=== PATIENT | male | born 1960 | race American Indian/Alaskan Native ===

== ENCOUNTER 2016-12-07 19:13 | Emergency (ER) | payer SELFPAY ==
--- NOTE | 2016-12-07 23:10 | Emergency Department Report ---
- General Chief complaint: Extremity Problem,Nontraumatic Stated complaint: R LEG PAIN/CP Time Seen by Provider: 12/07/16 22:36 Source: patient Mode of arrival: Ambulatory Limitations: No Limitations - History of Present Illness Initial comments: Patient is a 56-year-old male presenting to the ED with right lower leg skin complaints and a right-sided chest wall lump. Patient reports he's had this itching excoriations and lesions on his right leg for the past 3 months. he reports the itching is increased. he reports no one else in his home has a similar complaint, and he has no other areas of his body with lesions or itching. Patient also reports he feels a right sided lump to the right chest wall rate underneath his nipple which he eports is mobile and is painful at times. Patient denies any area of redness swelling or itching around the chest mass. Otherwise patient denies fevers, chills, headache, nausea, vomiting, diarrhea, chest pain, shortness of breath, abdominal pain, trauma, recent travel , or sick contacts. MD complaint: rash, insect bite/sting -: month(s) (3) Tetanus Up to Date: no Quality: burning (burning skin lesions) Improves with: none Worsens with: none Context: none Associated symptoms: denies other symptoms - Related Data Previous Rx's Medication Instructions Recorded Last Taken Type Permethrin 5% [Acticin 5% CREAM] 1 applicatio TP ONCE #1 tube 12/07/16 Unknown Rx Sulfamethoxazole/Trimethoprim 1 each PO BID #20 tablet 12/07/16 Unknown Rx [Bactrim DS TAB] Allergies Allergy/AdvReac Type Severity Reaction Status Date / Time Penicillins Allergy Unknown Unknown Verified 07/07/13 08:28 Abscess Boil HPI - HPI Chief Complaint: Extremity Problem,Nontraumatic Stated Complaint: R LEG PAIN/CP Time Seen by Provider: 12/07/16 22:36 Home Medications: Previous Rx's Medication Instructions Recorded Last Taken Type Permethrin 5% [Acticin 5% CREAM] 1 applicatio TP ONCE #1 tube 12/07/16 Unknown Rx Sulfamethoxazole/Trimethoprim 1 each PO BID #20 tablet 12/07/16 Unknown Rx [Bactrim DS TAB] Allergies/Adverse Reactions: Allergies Allergy/AdvReac Type Severity Reaction Status Date / Time Penicillins Allergy Unknown Unknown Verified 07/07/13 08:28 ED Review of Systems ROS: Stated complaint: R LEG PAIN/CP Other details as noted in HPI Comment: All other systems reviewed and negative ED Past Medical Hx - Past Medical History Previous Medical History?: Yes Hx Hypertension: Yes Hx Heart Attack/AMI: No Hx Congestive Heart Failure: No Hx Diabetes: No Hx GERD: No Hx Headaches / Migraines: No Hx Kidney Stones: No Hx Asthma: No Hx COPD: No Hx Tuberculosis: No Hx HIV: No - Surgical History Past Surgical History?: Yes Hx Coronary Stent: No Hx Pacemaker: No Hx Internal Defibrillator: No Additional Surgical History: Ear surgery. Orchiectomy secondary to "it just swolle up on me" - Social History Smoking Status: Current Every Day Smoker Substance Use Type: Alcohol - Medications Home Medications: Home Medications Medication Instructions Recorded Confirmed Last Taken Type Permethrin 5% [Acticin 5% CREAM] 1 applicatio TP ONCE #1 tube 12/07/16 Unknown Rx Sulfamethoxazole/Trimethoprim 1 each PO BID #20 tablet 12/07/16 Unknown Rx [Bactrim DS TAB] ED Physical Exam - General Limitations: No Limitations General appearance: alert, in no apparent distress - Head Head exam: Present: atraumatic, normocephalic - Eye Eye exam: Present: normal appearance - ENT ENT exam: Present: mucous membranes moist - Neck Neck exam: Present: normal inspection - Respiratory Respiratory exam: Present: normal lung sounds bilaterally. Absent: respiratory distress - Cardiovascular Cardiovascular Exam: Present: regular rate, normal rhythm. Absent: systolic murmur, diastolic murmur, rubs, gallop - GI/Abdominal GI/Abdominal exam: Present: soft, normal bowel sounds - Neurological Exam Neurological exam: Present: alert, oriented X3 - Skin Skin exam: Present: warm, dry, other (Mobile marble sized mass underneath the R nipple, no surrounding cellulitis, erythema, or swelling, no nipple discharge.) - Expanded Skin Exam Expanded Type of lesion: Present: rash, bite/sting Distribution of rash: RLE Description of rash: Present: tenderness, erythematous, other (small round ulcerated lesions, resembles scabies) ED Course Vital Signs 12/07/16 12/07/16 12/07/16 19:21 22:31 22:56 Temperature 98.6 F 98.2 F Pulse Rate 67 70 Respiratory 18 18 20 Rate Blood Pressure 144/99 Blood Pressure 125/75 [Left] O2 Sat by Pulse 98 98 99 Oximetry ED Medical Decision Making - Medical Decision Making Reviewed patient's physical exam patient has a rash on his lower lower right extremity resembling cellulitis and possibly scabies we'll treat for scabies and cellulitis Critical care attestation.: If time is entered above; I have spent that time in minutes in the direct care of this critically ill patient, excluding procedure time. ED Disposition Clinical Impression: Cellulitis, Crusted scabies, Mass of chest wall Disposition: DISCHARGED TO HOME OR SELFCARE Is pt being admited?: No Does the pt Need Aspirin: No Condition: Stable Instructions: Cellulitis (ED), Scabies (ED), Breast Mass (ED) Prescriptions: Permethrin 5% [Acticin 5% CREAM] 1 applicatio TP ONCE #1 tube Sulfamethoxazole/Trimethoprim [Bactrim DS TAB] 1 each PO BID #20 tablet Referrals: PRIMARY CARE, [Primary Care Provider] - 3-5 Days
[2016-12-08 00:40] VITALS: BP 122/70
--- NOTE | 2016-12-08 09:32 | XRay Report ---
CHEST 2 VIEWS INDICATION: Chest wall lump. Patient states a hard, sore lump under the right nipple for one day. Associated chest pain for past few hours. COMPARISON: 07/10/2016 FINDINGS: PA and lateral chest radiographs, 4 images, demonstrate now clear lungs without pleural effusions or CHF. Normal, well delineated cardiomediastinal silhouette. Better inspiration. Stable bones, including mild expansile deformity to the right seventh rib posterolaterally, stable dating back to October 2011 imaging at this institution, possibly an enchondroma or focal fibrous dysplasia on CT. Subtle old deformity along the left fifth rib laterally may also again be noted. CONCLUSION: No acute chest process with interval clearing of pulmonary infiltrates and stable appearance of the ribs, as described. Thank you for the opportunity to participate in this patient's care.
== END 2016-12-08 00:42 | disposition home or self-care (01) ==
LOC: ED 19:13
DX: L03.313 Cellulitis of chest wall (principal); B86 Scabies; I10 Essential (primary) hypertension; F17.200 Nicotine dependence, unspecified, uncomplicated; Z88.0 Allergy status to penicillin
CPT/HCPCS: 71020

== ENCOUNTER 2017-12-20 09:04 | Emergency (ER) | payer SELFPAY ==
[2017-12-20] MEDS ORDERED: LASIX PO ONE (10:59)
[2017-12-20] MEDS ORDERED: BENADRYL PO ONE (10:59)
--- NOTE | 2017-12-20 11:09 | Emergency Department Report ---
HPI - General Chief Complaint: Extremity Injury, Lower Time Seen by Provider: 12/20/17 10:57 - HPI HPI: The patient's 57-year-old male presents for evaluation of rash and pain to the right lower extremity. The patient reports rash and mild stinging in quality pain to the right irby, moderate to severe, exacerbated with scratching, present and constant for >3 months. He denies fever, trauma or puncture wound to the right lower leg, chills, night sweats, paresthesias, motor deficit, or color change in the leg or foot distal to the rt irby. ED Past Medical Hx - Past Medical History Hx Hypertension: Yes Hx Heart Attack/AMI: No Hx Congestive Heart Failure: No Hx Diabetes: No Hx GERD: No Hx Headaches / Migraines: No Hx Kidney Stones: No Hx Asthma: No Hx COPD: No Hx Tuberculosis: No Hx HIV: No - Surgical History Hx Coronary Stent: No Hx Pacemaker: No Hx Internal Defibrillator: No Additional Surgical History: Ear surgery. Orchiectomy secondary to "it just swolle up on me" - Social History Smoking Status: Current Every Day Smoker - Medications Home Medications: Home Medications Medication Instructions Recorded Confirmed Last Taken Type Permethrin 5% [Acticin 5% CREAM] 1 applicatio TP ONCE #1 tube 12/07/16 Unknown Rx Aspirin [Aspirin BABY CHEW TAB] 81 mg PO QDAY #30 tab.chew 12/20/17 Unknown Rx Desonide [Desonide 0.05%] 1 applicatio TP BID #1 tube 12/20/17 Unknown Rx Furosemide [Lasix] 20 mg PO QDAY #30 tablet 12/20/17 Unknown Rx Sulfamethoxazole/Trimethoprim 1 each PO BID #20 tablet 12/20/17 Unknown Rx [Bactrim DS TAB] ED Review of Systems ROS: Stated complaint: RIGHT LEG PAIN Other details as noted in HPI Constitutional: denies: fever ENT: denies: throat or neck pain Respiratory: denies: cough, shortness of breath Cardiovascular: denies: chest pain Endocrine: denies unexplained weight loss or gain Gastrointestinal: denies: abdominal pain, nausea Genitourinary: denies: dysuria Musculoskeletal: reports right irby pain denies: leg swelling Skin: denies: reports rt leg rash Neurological: denies: headache Hematological/Lymphatic: denies: easy bleeding or easy bruising Psych: denies sadness or hopelessness Physical Exam - Physical Exam Vital Signs: Vital Signs 12/20/17 09:40 Temperature 98.5 F Pulse Rate 67 Respiratory 16 Rate Blood Pressure 165/81 O2 Sat by Pulse 100 Oximetry Physical Exam: General: well-nourished, well-developed, no acute distress Head: Normocephalic, atraumatic Eyes: normal sclera ENT: Mucous membranes are pink and moist Neck: trachea midline, neck supple, No neck stiffness, no cervical adenopathy Respiratory: Breath sounds equal bilaterally, no wheezing, rales, or rhonchi Cardio: S1 and S2 present, no murmurs, rubs, gallops, capillary refill is brisk Abdomen: Normoactive bowel sounds, soft abdomen, no rigidity, no guarding or rebound tenderness Musc: Circumferential dry, scaly, hyperpigmentated skin with small areas of mild redess present to the right mid irby, sensation, motor function, and pulses in the right foot and leg distal to the irby intact, nasal polyposis of the palpable, no signs of compartment syndrome, no calf muscle pain with compression Skin: No rash Neuro: no facial drooping, normal speech Psych: Normal affect ED Course Vital Signs 12/20/17 09:40 Temperature 98.5 F Pulse Rate 67 Respiratory 16 Rate Blood Pressure 165/81 O2 Sat by Pulse 100 Oximetry ED Medical Decision Making - Medical Decision Making The patient's and examined by myself. There are no signs on exam concerning for DVT at this time protect as the patient has no calf muscle or thigh pain, and as his symptoms have been constant for many months, consistent with chronic venous insufficiency. The patient is given pain medicine. The patient was reevaluated and reported that their symptoms were markedly improved. The patient is stable for discharge with outpatient follow-up. The patient is given follow-up and return instructions. The patient expressed understanding and agreed with the plan. The patient is discharged in stable condition. Critical care attestation.: If time is entered above; I have spent that time in minutes in the direct care of this critically ill patient, excluding procedure time. ED Disposition Clinical Impression: Venous insufficiency of right lower extremity, Pain of right lower extremity Disposition: DC-01 TO HOME OR SELFCARE Is pt being admited?: No Does the pt Need Aspirin: No Condition: Stable Instructions: Stasis Dermatitis (ED), Peripheral Vascular Disorders (ED), Eczema (ED) Prescriptions: Aspirin [Aspirin BABY CHEW TAB] 81 mg PO QDAY #30 tab.chew Desonide [Desonide 0.05%] 1 applicatio TP BID #1 tube Furosemide [Lasix] 20 mg PO QDAY #30 tablet Sulfamethoxazole/Trimethoprim [Bactrim DS TAB] 1 each PO BID #20 tablet Referrals: PABLO KNOWLES MD [Primary Care Provider] - 3-5 Days Time of Disposition: 11:00
[2017-12-20 11:16] VITALS: BP 145/72
== END 2017-12-20 11:15 | disposition home or self-care (01) ==
LOC: ED 09:04
DX: M79.661 Pain in right lower leg (principal); I87.2 Venous insufficiency (chronic) (peripheral); I10 Essential (primary) hypertension; F17.200 Nicotine dependence, unspecified, uncomplicated; Z88.0 Allergy status to penicillin
CPT/HCPCS: 99282

== ENCOUNTER 2019-11-15 07:23 | Emergency (ER) | payer SELFPAY ==
[2019-11-15] MEDS ORDERED: ASPIRIN 325 MG TAB PO ONE (07:41)
--- NOTE | 2019-11-15 08:46 | XRay Report ---
CHEST 2 VIEWS INDICATION: Chest Pain. Occasional smoker. COMPARISON: 11/09/2014 FINDINGS: Support devices: None. Heart: Within normal limits. Pulmonary vasculature: Abnormal. Lungs/pleura: No acute air space or interstitial disease. No pneumothorax. Additional findings: An old healed fracture of the right seventh rib and an old healed fracture of th e left fourth rib are unchanged compared to the previous exam. IMPRESSION: 1. No acute findings. 2. Old rib fractures. Signer Name: David Haji MD Signed: 11/15/2019 8:42 AM Workstation Name: [id number]
--- NOTE | 2019-11-15 09:31 | Emergency Department Report ---
ED Chest Pain HPI - General Chief Complaint: Chest Pain Stated Complaint: CHEST PAIN Time Seen by Provider: 11/15/19 09:13 Source: patient Mode of arrival: Ambulatory Limitations: No Limitations - History of Present Illness Initial Comments: 59-year-old male with no past medical history, presents to ED with chest pain that occurred earlier this morning. Patient reports prior to experiencing this chest pain, he used cocaine for the first time with a friend. Patient states he experienced shooting pains that went across his entire chest. Patient states this occurred 3 times back to back. Patient denies any chest pain currently. He denies having any shortness of breath, nausea vomiting, diaphoresis. He also denies any fever, cough. MD Complaint: chest pain -: This morning Onset: during rest Pain Location: other (anterior chest) Pain Radiation: other (back and forth across chest) Severity scale (0 -10): 5 Quality: other ("shooting") Consistency: now resolved Improves With: nothing Worsens With: nothing re: denies: nausea, vomting, diaphoresis, dyspnea Other Symptoms: denies: cough, fever, leg swelling - Related Data Previous Rx's Medication Instructions Recorded Last Taken Type Permethrin 5% [Acticin 5% CREAM] 1 applicatio TP ONCE #1 tube 12/07/16 Unknown Rx Aspirin [Aspirin BABY CHEW TAB] 81 mg PO QDAY #30 tab.chew 12/20/17 Unknown Rx Desonide [Desonide 0.05%] 1 applicatio TP BID #1 tube 12/20/17 Unknown Rx Furosemide [Lasix] 20 mg PO QDAY #30 tablet 12/20/17 Unknown Rx Sulfamethoxazole/Trimethoprim 1 each PO BID #20 tablet 12/20/17 Unknown Rx [Bactrim DS TAB] Allergies Allergy/AdvReac Type Severity Reaction Status Date / Time Penicillins Allergy Unknown Unknown Verified 07/07/13 08:28 Heart Score - HEART Score History: Slightly suspicious EKG: Normal Age: 45-65 Risk factors: 1-2 risk factors Troponin: < normal limit HEART Score: 2 ED Review of Systems ROS: Stated complaint: CHEST PAIN Other details as noted in HPI Comment: All other systems reviewed and negative Constitutional: denies: fever Respiratory: denies: cough, shortness of breath Cardiovascular: chest pain Gastrointestinal: denies: nausea, vomiting Musculoskeletal: other (Denies leg pain or swelling) ED Past Medical Hx - Past Medical History Previous Medical History?: Yes Hx Hypertension: Yes Hx Heart Attack/AMI: No Hx Congestive Heart Failure: No Hx Diabetes: No Hx GERD: No Hx Headaches / Migraines: No Hx Kidney Stones: No Hx Asthma: Yes Hx COPD: No Hx Tuberculosis: No Hx HIV: No - Surgical History Past Surgical History?: Yes Hx Coronary Stent: No Hx Pacemaker: No Hx Internal Defibrillator: No Additional Surgical History: Ear surgery. Orchiectomy secondary to "it just swolle up on me" - Social History Smoking Status: Current Some Day Smoker Substance Use Type: Alcohol, Cocaine - Medications Home Medications: Home Medications Medication Instructions Recorded Confirmed Last Taken Type Permethrin 5% [Acticin 5% CREAM] 1 applicatio TP ONCE #1 tube 12/07/16 Unknown Rx Aspirin [Aspirin BABY CHEW TAB] 81 mg PO QDAY #30 tab.chew 12/20/17 Unknown Rx Desonide [Desonide 0.05%] 1 applicatio TP BID #1 tube 12/20/17 Unknown Rx Furosemide [Lasix] 20 mg PO QDAY #30 tablet 12/20/17 Unknown Rx Sulfamethoxazole/Trimethoprim 1 each PO BID #20 tablet 12/20/17 Unknown Rx [Bactrim DS TAB] ED Physical Exam - General Limitations: No Limitations General appearance: alert, in no apparent distress - Head Head exam: Present: atraumatic, normocephalic - Eye Eye exam: Present: normal appearance - ENT ENT exam: Present: mucous membranes moist - Neck Neck exam: Present: normal inspection - Respiratory Respiratory exam: Present: normal lung sounds bilaterally. Absent: respiratory distress - Cardiovascular Cardiovascular Exam: Present: regular rate, normal rhythm - GI/Abdominal GI/Abdominal exam: Present: soft. Absent: distended, tenderness - Extremities Exam Extremities exam: Present: normal inspection. Absent: pedal edema, calf tenderness - Neurological Exam Neurological exam: Present: alert, oriented X3 - Psychiatric Psychiatric exam: Present: normal affect, normal mood - Skin Skin exam: Present: warm, dry, intact, normal color ED Course Vital Signs 11/15/19 11/15/19 11/15/19 07:36 08:46 09:00 Temperature 97.9 F Pulse Rate 83 83 82 Respiratory 18 20 22 Rate Blood Pressure 152/91 183/98 183/98 Blood Pressure [Right] O2 Sat by Pulse 96 Oximetry 11/15/19 11/15/19 11/15/19 09:11 09:30 09:46 Temperature Pulse Rate 79 78 81 Respiratory 17 18 19 Rate Blood Pressure 170/88 170/88 Blood Pressure 170/88 [Right] O2 Sat by Pulse 100 97 98 Oximetry 11/15/19 11/15/19 11/15/19 10:06 10:16 10:30 Temperature Pulse Rate 80 89 84 Respiratory 16 20 18 Rate Blood Pressure 170/88 170/88 170/88 Blood Pressure [Right] O2 Sat by Pulse 97 95 96 Oximetry 11/15/19 11/15/19 11/15/19 10:46 11:00 11:16 Temperature Pulse Rate 80 80 79 Respiratory 20 21 21 Rate Blood Pressure 170/88 155/82 155/82 Blood Pressure [Right] O2 Sat by Pulse 96 95 97 Oximetry 11/15/19 11/15/19 11/15/19 11:30 11:46 12:00 Temperature Pulse Rate 76 81 88 Respiratory 20 20 22 Rate Blood Pressure 155/82 155/82 155/94 Blood Pressure [Right] O2 Sat by Pulse 96 98 98 Oximetry 11/15/19 12:48 Temperature Pulse Rate 88 Respiratory 22 Rate Blood Pressure Blood Pressure 155/94 [Right] O2 Sat by Pulse 98 Oximetry ROBIN score - Robin Score Age > 65: (0) No Aspirin use within the Past 7 Days: (0) No 3 or more CAD Risk Factors: (0) No 2 or more Angina events in past 24 hrs: (0) No Known CAD with more than 50% Stenosis: (0) No Elevated Cardiac Markers: (0) No ST Deviation Greater than 0.5mm: (0) No ROBIN Score: 0 ED Medical Decision Making - Lab Data Result diagrams: 11/15/19 08:54 11/15/19 08:54 - EKG Data -: EKG Interpreted by Tx EKG shows normal: sinus rhythm, axis, intervals, QRS complexes, ST-T waves Rate: normal - EKG Data Interpretation: no acute changes, LVH - Radiology Data Radiology results: report reviewed, image reviewed - Medical Decision Making - pt w/ atypical chest pain after using cocaine - currently asymptomatic - vitals w/ slightly elevated BP, otherwise normal - EKG and trop negative x2 - CXR normal - will d/c home - advised pt to stop using cocaine - outpt f/u advised - return precautions given - Differential Diagnosis ACS, atypical chest pain, pulm edema Critical care attestation.: If time is entered above; I have spent that time in minutes in the direct care of this critically ill patient, excluding procedure time. ED Disposition Clinical Impression: Acute chest pain, Cocaine abuse Disposition: DC- TO HOME OR SELFCARE Is pt being admited?: No Condition: Stable Instructions: Chest Pain (ED), Cocaine Abuse (ED) Referrals: MELISA ARVIZU MD [Primary Care Provider] - 3-5 Days Time of Disposition: 12:25
[2019-11-15 10:05] LABS: Basophils % (Auto) 0.6 % (0.0-1.8); Eosinophils # (Auto) 0.1 K/mm3 (0.0-0.4); Eosinophils % (Auto) 0.9 % (0.0-4.3); Hematocrit 41.3 % (35.5-45.6); Hemoglobin 14.1 gm/dl (11.8-15.2); Lymphocytes # (Auto) 1.8 K/mm3 (1.2-5.4); Lymphocytes % (Auto) 27.5 % (13.4-35.0); Mean Corpuscular HGB Conc 34 % (32-34); Mean Corpuscular Volume 93 fl (84-94); Monocytes # (Auto) 0.7 K/mm3 (0.0-0.8); Platelet Count 266 K/mm3 (140-440); Red Blood Count 4.43 M/mm3 (3.65-5.03); Red Cell Distribution Width 13.6 % (13.2-15.2)
[2019-11-15 10:08] LABS: BUN/Creatinine Ratio 20; Blood Urea Nitrogen 10 mg/dL (9-20); Calcium 8.9 mg/dL (8.4-10.2); Hemolysis Index 8
[2019-11-15 12:48] VITALS: BP 155/94
== END 2019-11-15 12:48 | disposition home or self-care (01) ==
LOC: ED 07:23
DX: F14.10 Cocaine abuse, uncomplicated (principal); R07.9 Chest pain, unspecified; I10 Essential (primary) hypertension; J45.909 Unspecified asthma, uncomplicated; F17.200 Nicotine dependence, unspecified, uncomplicated; Z79.82 Long term (current) use of aspirin; Z79.899 Other long term (current) drug therapy; Z88.0 Allergy status to penicillin; Z98.890 Other specified postprocedural states
CPT/HCPCS: 36415; 71046; 80048; 84484; 85025; 93005; 93010; 99284

== ENCOUNTER 2021-09-05 18:11 | Inpatient (IN) | payer SELFPAY, OTHER ==
[2021-09-05] MEDS ORDERED: IPRATROPIUM 0.02% NEBU 2.5 ML IH ONE (18:51)
[2021-09-05] MEDS ORDERED: ALBUTEROL 2.5 MG/3 ML NEBU IH ONE (18:51)
[2021-09-05] MEDS ORDERED: dexAMETHasone 20 MG/5 ML VIAL IV ONE (18:51)
--- NOTE | 2021-09-05 19:01 | Emergency Department Report ---
- General Chief Complaint: Upper Respiratory Infection Stated Complaint: COUGH Time Seen by Provider: 09/05/21 18:39 Source: patient Mode of arrival: Ambulatory Limitations: No Limitations - History of Present Illness Initial Comments: Patient is a 61-year-old male presents emergency room complaints of a productive cough that began 2 weeks ago. He states his symptoms worsened over the last week. He has associated shortness of breath, wheezing, subjective fever, chills, body aches, diarrhea. He denies any chest pain, vomiting. He denies any known sick contacts or recent travel. He has not been vaccinated for COVID- 19. He has a past medical history of asthma. He states he is out of his inhaler. He is a tobacco user. Allergy to penicillin. - Related Data Previous Rx's Medication Instructions Recorded Last Taken Type Permethrin 5% [Acticin 5% CREAM] 1 applicatio TP ONCE #1 tube 12/07/16 Unknown Rx Aspirin [Aspirin BABY CHEW TAB] 81 mg PO QDAY #30 tab.chew 12/20/17 Unknown Rx Desonide [Desonide 0.05%] 1 applicatio TP BID #1 tube 12/20/17 Unknown Rx Furosemide [Lasix] 20 mg PO QDAY #30 tablet 12/20/17 Unknown Rx Sulfamethoxazole/Trimethoprim 1 each PO BID #20 tablet 12/20/17 Unknown Rx [Bactrim DS TAB] Allergies Allergy/AdvReac Type Severity Reaction Status Date / Time Penicillins Allergy Unknown Unknown Verified 09/05/21 18:31 ED Review of Systems ROS: Stated complaint: COUGH Other details as noted in HPI Comment: All other systems reviewed and negative ED Past Medical Hx - Past Medical History Hx Hypertension: Yes Hx Heart Attack/AMI: No Hx Congestive Heart Failure: No Hx Diabetes: No Hx GERD: No Hx Headaches / Migraines: No Hx Kidney Stones: No Hx Asthma: Yes Hx COPD: No Hx Tuberculosis: No Hx HIV: No - Surgical History Hx Coronary Stent: No Hx Pacemaker: No Hx Internal Defibrillator: No Additional Surgical History: Ear surgery. Orchiectomy secondary to "it just swolle up on me" - Social History Smoking Status: Current Some Day Smoker Substance Use Type: Alcohol, Cocaine - Medications Home Medications: Home Medications Medication Instructions Recorded Confirmed Last Taken Type Permethrin 5% [Acticin 5% CREAM] 1 applicatio TP ONCE #1 tube 12/07/16 Unknown Rx Aspirin [Aspirin BABY CHEW TAB] 81 mg PO QDAY #30 tab.chew 12/20/17 Unknown Rx Desonide [Desonide 0.05%] 1 applicatio TP BID #1 tube 12/20/17 Unknown Rx Furosemide [Lasix] 20 mg PO QDAY #30 tablet 12/20/17 Unknown Rx Sulfamethoxazole/Trimethoprim 1 each PO BID #20 tablet 12/20/17 Unknown Rx [Bactrim DS TAB] ED Physical Exam - General Limitations: No Limitations General appearance: alert, in no apparent distress - Head Head exam: Present: atraumatic, normocephalic - Eye Eye exam: Present: normal appearance - ENT ENT exam: Present: mucous membranes moist - Respiratory Respiratory exam: Present: wheezes (bilaterally), prolonged expiratory. Absent: respiratory distress, rales, rhonchi, stridor, chest wall tenderness, accessory muscle use, decreased breath sounds - Cardiovascular Cardiovascular Exam: Present: regular rate, normal rhythm, normal heart sounds - Neurological Exam Neurological exam: Present: alert, oriented X3 - Psychiatric Psychiatric exam: Present: normal affect, normal mood - Skin Skin exam: Present: warm, dry, intact ED Course Vital Signs 09/05/21 18:33 Temperature 98.8 F Pulse Rate 78 Respiratory 22 Rate Blood Pressure 125/77 O2 Sat by Pulse 91 Oximetry - Consultations Consultation #1: 09/05/21 7:17 PM Discussed case with Dr. Boudreaux, hospitalist who will accept and resume care of patient, will admit to hospitalist service ED Medical Decision Making - Lab Data Result diagrams: 09/05/21 19:11 09/05/21 19:11 Lab Results 09/05/21 09/05/21 09/05/21 Range/Units 19:11 19:11 19:50 WBC 7.4 (4.5-11.0) K/mm3 RBC 4.09 (3.65-5.03) M/mm3 Hgb 12.8 (11.8-15.2) gm/dl Hct 38.6 (35.5-45.6) % MCV 94 (84-94) fl MCH 31 (28-32) pg MCHC 33 (32-34) % RDW 15.4 H (13.2-15.2) % Plt Count 302 (140-440) K/mm3 Lymph % (Auto) 18.5 (13.4-35.0) % [place] % (Auto) 10.7 H (0.0-7.3) % Eos % (Auto) 0.1 (0.0-4.3) % Baso % (Auto) 0.2 (0.0-1.8) % Lymph # (Auto) 1.4 (1.2-5.4) K/mm3 [place] # (Auto) 0.8 (0.0-0.8) K/mm3 Eos # (Auto) 0.0 (0.0-0.4) K/mm3 Baso # (Auto) 0.0 (0.0-0.1) K/mm3 Seg Neutrophils % 70.5 H (40.0-70.0) % Seg Neutrophils # 5.2 (1.8-7.7) K/mm3 D-Dimer 545.84 H (0-234) ng/mlDDU Sodium 136 L (137-145) mmol/L Potassium 3.4 L (3.6-5.0) mmol/L Chloride 97.0 L (98-107) mmol/L Carbon Dioxide 23 (22-30) mmol/L Anion Gap 19 mmol/L BUN 6 L (9-20) mg/dL Creatinine 0.5 L (0.8-1.3) mg/dL Estimated GFR > 60 ml/min BUN/Creatinine Ratio 12 % Glucose 88 (75-100) mg/dL Calcium 8.5 (8.4-10.2) mg/dL Total Bilirubin 0.50 (0.1-1.2) mg/dL AST 25 (5-40) units/L ALT 13 (7-56) units/L Alkaline Phosphatase 68 (35-129) units/L Lactate Dehydrogenase (91-180) units/L C-Reactive Protein (0.00-1.30) mg/dL Total Protein 7.2 (6.3-8.2) g/dL Albumin 3.4 L (3.9-5) g/dL Albumin/Globulin Ratio 0.9 % 09/05/21 Range/Units 19:50 WBC (4.5-11.0) K/mm3 RBC (3.65-5.03) M/mm3 Hgb (11.8-15.2) gm/dl Hct (35.5-45.6) % MCV (84-94) fl MCH (28-32) pg MCHC (32-34) % RDW (13.2-15.2) % Plt Count (140-440) K/mm3 Lymph % (Auto) (13.4-35.0) % [place] % (Auto) (0.0-7.3) % Eos % (Auto) (0.0-4.3) % Baso % (Auto) (0.0-1.8) % Lymph # (Auto) (1.2-5.4) K/mm3 [place] # (Auto) (0.0-0.8) K/mm3 Eos # (Auto) (0.0-0.4) K/mm3 Baso # (Auto) (0.0-0.1) K/mm3 Seg Neutrophils % (40.0-70.0) % Seg Neutrophils # (1.8-7.7) K/mm3 D-Dimer (0-234) ng/mlDDU Sodium (137-145) mmol/L Potassium (3.6-5.0) mmol/L Chloride (98-107) mmol/L Carbon Dioxide (22-30) mmol/L Anion Gap mmol/L BUN (9-20) mg/dL Creatinine (0.8-1.3) mg/dL Estimated GFR ml/min BUN/Creatinine Ratio % Glucose (75-100) mg/dL Calcium (8.4-10.2) mg/dL Total Bilirubin (0.1-1.2) mg/dL AST (5-40) units/L ALT (7-56) units/L Alkaline Phosphatase (35-129) units/L Lactate Dehydrogenase 317 H (91-180) units/L C-Reactive Protein 9.90 H (0.00-1.30) mg/dL Total Protein (6.3-8.2) g/dL Albumin (3.9-5) g/dL Albumin/Globulin Ratio % - Radiology Data Radiology results: report reviewed Ordering Physician: LORETTA WEATHERS Date of Service: 09/05/21 Procedure(s): XR chest routine 2V Accession Number(s): [id number] cc: LORETTA WEATHERS Fluoro Time In Minutes: CHEST 2 VIEWS INDICATION / CLINICAL INFORMATION: cough, sob, wheezing. COMPARISON: 11/15/2019 FINDINGS: SUPPORT DEVICES: None. HEART / MEDIASTINUM: No significant abnormality. LUNGS / PLEURA: Mild patchy bilateral opacities. ADDITIONAL FINDINGS: No significant additional findings. IMPRESSION: 1. Mild patchy bilateral opacities likely indicating multifocal pneumonia. Signer Name: Mendez Schultz MD Signed: 09/05/2021 7:09 PM Workstation Name: [id number] Transcribed By: STEPHEN Dictated By: Mendez Schultz MD Electronically Authenticated By: Mendez Schultz MD Signed Date/Time: 09/05/211908 DD/ 08 TD/TT: - Medical Decision Making Patient is a 61-year-old male presents emergency room complaints of a productive cough that began 2 weeks ago. He states his symptoms worsened over the last we ek. He has associated shortness of breath, wheezing, subjective fever, chills, body aches, diarrhea. He denies any chest pain, vomiting. He denies any known sick contacts or recent travel. He has not been vaccinated for COVID-19. He has a past medical history of asthma. He states he is out of his inhaler. He is a tobacco user. Allergy to penicillin. Vitals with hypoxia at rest at 91%, upon ambulation patient dropped to 89% on room air. Patient placed on nasal cannula and remained stable. Breath sounds with wheezing bilaterally, no respiratory distress, no accessory muscle use. Chest x-ray 1. Mild patchy bilateral opacities likely indicating multifocal pneumonia. Symptoms and exa mination likely consistent with COVID-19 pneumonia with acute respiratory failure. Discussed with Dr. Pires who agrees with admission. Discussed case with Dr. Boudreaux, hospitalist who will accept and resume care of patient, will admit to hospitalist service. Discussed all findings with patient who is agreeable with plan. Critical care attestation.: If time is entered above; I have spent that time in minutes in the direct care of this critically ill patient, excluding procedure time. ED Disposition Clinical Impression: Multifocal pneumonia, Suspected 2019 novel coronavirus infection, Acute respiratory failure with hypoxia, COVID-19 vaccination not done, Tobacco use disorder Asthma exacerbation Qualifiers: Asthma severity: unspecified severity Asthma persistence: unspecified Qualified Code(s): J45.901 - Unspecified asthma with (acute) exacerbation Disposition: 02 [facility]ORT [facility] Is pt being admited?: Yes Does the pt Need Aspirin: No Condition: Fair Instructions: Bacterial Pneumonia (ED) Print Language: SAMI
--- NOTE | 2021-09-05 19:14 | XRay Report ---
CHEST 2 VIEWS INDICATION / CLINICAL INFORMATION: cough, sob, wheezing. COMPARISON: 11/15/2019 FINDINGS: SUPPORT DEVICES: None. HEART / MEDIASTINUM: No significant abnormality. LUNGS / PLEURA: Mild patchy bilateral opacities. ADDITIONAL FINDINGS: No significant additional findings. IMPRESSION: 1. Mild patchy bilateral opacities likely indicating multifocal pneumonia. Signer Name: Mendez Schultz MD Signed: 09/05/2021 7:09 PM Workstation Name: [id number]
[2021-09-05] MEDS ORDERED: cefTRIAXone/NS 2 GM/100 ML 2 GM/100 ML BAG IV ONE (19:17)
[2021-09-05] MEDS ORDERED: AZITHROMYCIN/NS 500 MG/250 ML 500 MG/250 ML BAG IV ONE (19:17)
--- NOTE | 2021-09-05 19:39 | History and Physical Report ---
History of Present Illness Chief complaint: I am coughing and having a problem breathing History of present illness: 61 YO Male with HTN, Asthma, Nicotine Dependence, PSA presents to ED for evaluation. Patient reports "I am coughing and then having a problem breathing". Patient states that he has experienced shortness of breath, fever, chills, body aches, multiple loose stools, diminished sense of smell, diminished sense of taste, decreased exercise tolerance, malaise over the past 1 week with worsening symptoms over the same timeframe. Patient transported to [facility] via private vehicle for further care and evaluation of the aforementioned symptoms. The patient was seen and evaluated in the emergency department. All lab and imaging studies reviewed. Patient found to have a pulse oximetry of 86% on room air with exertion which is consistent with acute hypoxemic respiratory failure. Chest x-ray revealed bilateral pneumonia. Patient admitted to the medical floor and initiated on pneumonia protocol as well as coronavirus protocol. Patient denies fever, chills, productive cough but denies skin rash, unilateral leg swelling, trauma, individual/family history of DVT/PE/bleeding/blood clotting disorders. Prior admission on 07/08/2016 reviewed. All medication listed at time of admission has been reconciled. Advanced care planning conducted in ED. Patient is not vaccinated against COVID-19. Past History Past Medical History: hypertension, other (See HPI) Past Surgical History: Other (Orchiectomy) Social history: single, smoking, alcohol abuse Family history: hypertension Medications and Allergies Allergies Allergy/AdvReac Type Severity Reaction Status Date / Time Penicillins Allergy Unknown Unknown Verified 09/05/21 18:31 Home Medications Medication Instructions Recorded Confirmed Last Taken Type Permethrin 5% [Acticin 5% CREAM] 1 applicatio TP ONCE #1 tube 12/07/16 Unknown Rx Aspirin [Aspirin BABY CHEW TAB] 81 mg PO QDAY #30 tab.chew 12/20/17 Unknown Rx Desonide [Desonide 0.05%] 1 applicatio TP BID #1 tube 12/20/17 Unknown Rx Furosemide [Lasix] 20 mg PO QDAY #30 tablet 12/20/17 Unknown Rx Sulfamethoxazole/Trimethoprim 1 each PO BID #20 tablet 12/20/17 Unknown Rx [Bactrim DS TAB] Active Meds: Active Medications Azithromycin (Zithromax/Ns) 500 mg in 250 mls @ 250 mls/hr IV ONCE ONE; Protocol Stop: 09/05/21 20:16 Ceftriaxone Sodium (Rocephin/Ns 2 Gm/100 Ml) 2 gm in 100 mls @ 200 mls/hr IV ONCE ONE; Protocol Stop: 09/05/21 19:46 Review of Systems Constitutional: fever, fatigue, weakness, malaise Ears, nose, mouth and throat: other (Loss of sense of smell, loss of sense of taste), no ear pain, no ear discharge, no tinnitis, no decreased hearing Cardiovascular: no chest pain, no orthopnea Respiratory: cough, cough with sputum, shortness of breath Gastrointestinal: diarrhea, no abdominal pain, no constipation, no change in bowel habits Genitourinary Male: no hematuria, no flank pain, no discharge, no urinary frequency, no urinary hesitancy Rectal: no pain, no incontinence, no bleeding Musculoskeletal: no neck stiffness, no neck pain, no shooting arm pain, no arm numbness/tingling, no low back pain, no redness of joints Integumentary: no rash, no pruritis, no redness, no sores, no wounds Neurological: no head injury, no paralysis, no weakness, no numbness, no tingling Psychiatric: no anxiety, no hypersomnia, no change in libido, no suicidal ideation, no hallucinations Endocrine: no cold intolerance, no heat intolerance, no polyphagia, no excessive thirst, no polydipsia Hematologic/Lymphatic: no easy bruising Allergic/Immunologic: no urticaria, no wheezing Exam - Constitutional Vitals: Temp Pulse Resp BP Pulse Ox 98.8 F 78 22 125/77 91 09/05/21 18:33 09/05/21 18:33 09/05/21 18:33 09/05/21 18:33 09/05/21 18:33 General appearance: Present: mild distress - EENT Eyes: Present: PERRL ENT: hearing intact, clear oral mucosa - Neck Neck: Present: supple, normal ROM - Respiratory Respiratory effort: labored, pursed lips, accessory muscle use Respiratory: bilateral: diminished - Cardiovascular Heart Sounds: Present: S1 & S2. Absent: rub, click - Extremities Extremities: pulses symmetrical, No edema Peripheral Pulses: within normal limits - Abdominal General gastrointestinal: Present: soft, non-tender, non-distended, normal bowel sounds Male genitourinary: Present: normal - Integumentary Integumentary: Present: clear, warm, dry - Musculoskeletal Musculoskeletal: generalized weakness - Psychiatric Psychiatric: appropriate mood/affect, intact judgment & insight - Neurologic Neurologic: CNII-XII intact, moves all extremities Results - Labs CBC & Chem 7: 09/05/21 19:11 09/05/21 19:11 Assessment and Plan - Patient Problems (1) Acute hypoxemic respiratory failure Status: Acute Plan to address problem: Chest x-ray, supplemental oxygen, pulse oximetry, nebulizer therapy, will consider high flow supplemental oxygen if patient is unable to maintain pulse oximetry on supplemental oxygen via nasal cannula. (2) Pneumonia Status: Acute Plan to address problem: Pneumonia protocol: Chest x-ray, CBC, CMP, IV antibiotic therapy, supplemental oxygen, pulse oximetry, nebulizer therapy, blood culture. (3) Suspected 2019 novel coronavirus infection Status: Acute Plan to address problem: Coronavirus protocol: IV antibiotic therapy, IV steroid therapy, vitamin C therapy, vitamin D therapy, zinc therapy, prophylactic anticoagulation. (4) Hypertension Status: Acute Qualifiers: Hypertension type: primary hypertension Qualified Code(s): I10 - Essential (primary) hypertension Plan to address problem: Monitor blood pressure every shift, continue medical management. (5) COVID-19 vaccination not done Status: Acute Plan to address problem: Patient counseled. Patient knowledges understanding instructions. (6) DVT prophylaxis Status: Acute Plan to address problem: SCD bilateral lower extremities while in bed, prophylactic anticoagulation (7) Advance care planning Status: Acute Plan to address problem: Disease education conducted, care plan discussed, diagnoses discussed, prognosis discussed, patient is full code. Patient acknowledges understanding and agreement with care plan, +30 minutes.
[2021-09-05 19:40] LABS: Basophils % (Auto) 0.2 % (0.0-1.8); Eosinophils % (Auto) 0.1 % (0.0-4.3); Hematocrit 38.6 % (35.5-45.6); Hemoglobin 12.8 gm/dl (11.8-15.2); Lymphocytes # (Auto) 1.4 K/mm3 (1.2-5.4); Lymphocytes % (Auto) 18.5 % (13.4-35.0); Mean Corpuscular HGB Conc 33 % (32-34); Mean Corpuscular Volume 94 fl (84-94); Monocytes # (Auto) 0.8 K/mm3 (0.0-0.8); Monocytes % (Auto) 10.7 % (0.0-7.3); Platelet Count 302 K/mm3 (140-440); Red Blood Count 4.09 M/mm3 (3.65-5.03); Red Cell Distribution Width 15.4 % (13.2-15.2)
[2021-09-05 19:44] LABS: Alanine Aminotransferase 13 units/L (7-56); Albumin 3.4 g/dL (3.9-5); Blood Urea Nitrogen 6 mg/dL (9-20); Calcium 8.5 mg/dL (8.4-10.2); Hemolysis Index 6
[2021-09-05] MEDS ORDERED: ALBUTEROL 2.5 MG/3 ML NEBU IH PRN (19:47)
[2021-09-05] MEDS ORDERED: HYDROmorphone 1 MG/1 ML INJ IV PRN (19:47)
[2021-09-05] MEDS ORDERED: ACETAMINOPHEN 325 MG TAB PO PRN (19:47)
[2021-09-05] MEDS ORDERED: ONDANSETRON 4 MG/2 ML INJ IV PRN (19:47)
[2021-09-05] MEDS ORDERED: oxyCODONE /ACETAMINOPHEN 5-325MG TAB PO PRN (19:47)
[2021-09-05 19:50] LABS: BUN/Creatinine Ratio 12
[2021-09-05] MEDS ORDERED: SODIUM CHLORIDE 0.9% 1000 ML 1,000 ML IV ONE (19:51)
[2021-09-05 20:16] LABS: C-Reactive Protein 9.9 mg/dL (0.00-1.30)
[2021-09-06] MEDS: ASCORBIC ACID 500 MG TAB PO SCH ×3 (01:02→22:09)
[2021-09-06] MEDS: ZINC SULFATE 220 MG CAP PO SCH ×3 (01:02→22:09)
[2021-09-06] MEDS: methylPREDNISolone Sod Succinate 40 MG/1 ML INJ IV SCH ×2 (01:02→20:45)
[2021-09-06] MEDS: HEPARIN 5,000 UNIT/1 ML VIAL SUB-Q SCH ×3 (01:02→22:10)
[2021-09-06 04:07] LABS: Hematocrit 35.9 % (35.5-45.6); Hemoglobin 12.3 gm/dl (11.8-15.2); Mean Corpuscular HGB Conc 34 % (32-34); Mean Corpuscular Volume 95 fl (84-94); Platelet Count 301 K/mm3 (140-440); Red Blood Count 3.77 M/mm3 (3.65-5.03); Red Cell Distribution Width 15.4 % (13.2-15.2)
[2021-09-06 04:22] LABS: Blood Urea Nitrogen 6 mg/dL (9-20); Calcium 7.9 mg/dL (8.4-10.2); Hemolysis Index 8
[2021-09-06 04:36] LABS: BUN/Creatinine Ratio 10
[2021-09-06 04:54] LABS: Basophils % (Manual) 0 % (0.0-1.8); Eosinophils % (Manual) 0 % (0.0-4.3); Total Cells Counted 100
[2021-09-06 04:55] LABS: Platelet Estimate Consistent w Auto; RBC Morphology Normal
[2021-09-06] MEDS ORDERED: POTASSIUM CHLORIDE ER 20 MEQ TAB PO SCH (08:00)
--- NOTE | 2021-09-06 09:22 | Cat Scan Report ---
CTA CHEST WITH CONTRAST INDICATION : dyspnea OMNI 350 100 ML. TECHNIQUE: Axial imaging performed through the chest, with contrast bolus timing set to maximize opa cification of the pulmonary arteries. Sagittal and coronal reformatted images. 3-plane MIP reformatte d images were obtained. All CT scans at this location are performed using CT dose reduction for ALAR A by means of automated exposure control. Omnipaque 350 100 mL of intravenous contrast administered. COMPARISON: Chest x-ray performed yesterday FINDINGS: Bolus: Contrast bolus timing is adequate. PTE: No filling defect is present to suggest PTE. Mediastinum: Heart and great vessels appear normal. There are multiple borderline to mildly enlarge d subcarinal and bilateral hilar lymph nodes. Lungs: Mild peribronchial infiltration is identified in both lower lobes, posterior right upper lobe and inferior lingula. No pleural effusion or pneumothorax. Bones: Degenerative changes in the spine with nothing acute. Upper abdomen: Limited imaging of the upper abdomen shows nothing acute. IMPRESSION: No evidence for pulmonary embolus. Bilateral lower lung infiltrates are identified concerning for aspiration or atypical pneumonia. Plea se correlate with the patient's clinical presentation. Signer Name: Balaji Mann Jr, MD Signed: 09/06/2021 9:17 AM Workstation Name: [id number]
--- NOTE | 2021-09-06 10:50 | Progress Note ---
Assessment and Plan Assessment and plan: 61 YO Male with HTN, Asthma, Nicotine Dependence, PSA presents to ED for evaluation. Patient reports "I am coughing and then having a problem breathing". Patient states that he has experienced shortness of breath, fever, chills, body aches, multiple loose stools, diminished sense of smell, diminished sense of taste, decreased exercise tolerance, malaise over the past 1 week with worsening symptoms over the same timeframe. Patient transported to [facility] via private vehicle for further care and evaluation of the aforementioned symptoms. The patient was seen and evaluated in the emergency department. All lab and imaging studies reviewed. Patient found to have a pulse oximetry of 86% on room air with exertion which is consistent with acute hypoxemic respiratory failure. Chest x-ray revealed bilateral pneumonia. Patient admitted to the medical floor and initiated on pneumonia protocol as well as coronavirus protocol. Patient denies fever, chills, productive cough but denies skin rash, unilateral leg swelling, trauma, individual/family history of DVT/PE/bleeding/blood clotting disorders. Prior admission on 07/08/2016 reviewed. All medication listed at time of admission has been reconciled. Advanced care planning conducted in ED. Patient is not vaccinated against COVID-19. Chest x-ray shows bibasilar multifocal pneumonia (1) Acute hypoxemic respiratory failure (2) Pneumonia (3) Suspected 2019 novel coronavirus infection (4) Hypertension (5) COVID-19 vaccination not done (6) Tobacco use disorder (7) Hypokalemia Plan Continue supportive care Oxygen support Continue steroid therapy Potassium replaced COVID testing and if positive will require to initiate remdesivir ID consult if COVID testing is positive otherwise continue current antibiotics and discontinue based on prolactin level Counseling on compliance with COVID vaccination Tobacco cessation advice was provided to the patient-15 mins counselling Further plan of care to be determined by clinical progression in the next 24 Plan decided with the patient History Interval history: Patient seen and examined this morning still with cough and some shortness of breath saturating 90% on room air improved to 96 on 2 L of oxygen Hospitalist Physical - Physical exam Narrative exam: VITAL SIGNS: Reviewed. GENERAL: The patient appears normally developed, intermittent coughing spell vital signs as documented. HEAD: No signs of head trauma. EYES: Pupils are equal. Extraocular motions intact. EARS: Hearing grossly intact. MOUTH: Oropharynx is normal. NECK: No adenopathy, no JVD. CHEST: Chest with crackles breath sounds bilaterally. No wheezes, rales, or rhonchi. CARDIAC: Regular rate and rhythm. S1 and S2, without murmurs, gallops, or rubs. VASCULAR: No Edema. Peripheral pulses normal and equal in all extremities. ABDOMEN: Soft, non tender and non distended. No rebound or guarding, and no masses palpated. Bowel Sounds normal. MUSCULOSKELETAL: Good range of motion of all major joints. Extremities without clubbing, cyanosis or edema. NEUROLOGIC EXAM: Alert and oriented x 3 No focal sensory or strength deficits. Speech normal. Follows commands. PSYCHIATRIC: Mood normal. SKIN: detail exam as documented in skin assessment - Constitutional Vitals: Temp Pulse Resp BP Pulse Ox 98.1 F 75 25 H 145/89 92 09/06/21 03:10 09/06/21 07:01 09/06/21 07:01 09/06/21 07:01 09/06/21 07:01 General appearance: Present: mild distress Results - Labs CBC & Chem 7: 09/06/21 03:04 09/06/21 03:04 Labs: Laboratory Last Values WBC 8.4 K/mm3 (4.5-11.0) 09/06/21 03:04 RBC 3.77 M/mm3 (3.65-5.03) 09/06/21 03:04 Hgb 12.3 gm/dl (11.8-15.2) 09/06/21 03:04 Hct 35.9 % (35.5-45.6) 09/06/21 03:04 MCV 95 fl (84-94) H 09/06/21 03:04 MCH 33 pg (28-32) H 09/06/21 03:04 MCHC 34 % (32-34) 09/06/21 03:04 RDW 15.4 % (13.2-15.2) H 09/06/21 03:04 Plt Count 301 K/mm3 (140-440) 09/06/21 03:04 Lymph % (Auto) 18.5 % (13.4-35.0) 09/05/21 19:11 [place] % (Auto) 10.7 % (0.0-7.3) H 09/05/21 19:11 Eos % (Auto) 0.1 % (0.0-4.3) 09/05/21 19:11 Baso % (Auto) 0.2 % (0.0-1.8) 09/05/21 19:11 Lymph # (Auto) 1.4 K/mm3 (1.2-5.4) 09/05/21 19:11 [place] # (Auto) 0.8 K/mm3 (0.0-0.8) 09/05/21 19:11 Eos # (Auto) 0.0 K/mm3 (0.0-0.4) 09/05/21 19:11 Baso # (Auto) 0.0 K/mm3 (0.0-0.1) 09/05/21 19:11 Add Manual Diff Complete 09/06/21 03:04 Total Counted 100 09/06/21 03:04 Seg Neutrophils % Aluminum Sheet Cutter 09/06/21 03:04 Seg Neuts % (Manual) 96.0 % (40.0-70.0) H 09/06/21 03:04 Band Neutrophils % 0 % 09/06/21 03:04 Lymphocytes % (Manual) 3.0 % (13.4-35.0) L 09/06/21 03:04 Reactive Lymphs % (Man) 0 % 09/06/21 03:04 Monocytes % (Manual) 1.0 % (0.0-7.3) 09/06/21 03:04 Eosinophils % (Manual) 0 % (0.0-4.3) 09/06/21 03:04 Basophils % (Manual) 0 % (0.0-1.8) 09/06/21 03:04 Metamyelocytes % 0 % 09/06/21 03:04 Myelocytes % 0 % 09/06/21 03:04 Promyelocytes % 0 % 09/06/21 03:04 Blast Cells % 0 % 09/06/21 03:04 Nucleated RBC % Not Reportable 09/06/21 03:04 Seg Neutrophils # 5.2 K/mm3 (1.8-7.7) 09/05/21 19:11 Seg Neutrophils # Man 8.1 K/mm3 (1.8-7.7) H 09/06/21 03:04 Band Neutrophils # 0.0 K/mm3 09/06/21 03:04 Lymphocytes # (Manual) 0.3 K/mm3 (1.2-5.4) L 09/06/21 03:04 Abs React Lymphs (Man) 0.0 K/mm3 09/06/21 03:04 Monocytes # (Manual) 0.1 K/mm3 (0.0-0.8) 09/06/21 03:04 Eosinophils # (Manual) 0.0 K/mm3 (0.0-0.4) 09/06/21 03:04 Basophils # (Manual) 0.0 K/mm3 (0.0-0.1) 09/06/21 03:04 Metamyelocytes # 0.0 K/mm3 09/06/21 03:04 Myelocytes # 0.0 K/mm3 09/06/21 03:04 Promyelocytes # 0.0 K/mm3 09/06/21 03:04 Blast Cells # 0.0 K/mm3 09/06/21 03:04 WBC Morphology Not Reportable 09/06/21 03:04 Hypersegmented Neuts Not Reportable 09/06/21 03:04 Hyposegmented Neuts Not Reportable 09/06/21 03:04 Hypogranular Neuts Not Reportable 09/06/21 03:04 Smudge Cells Not Reportable 09/06/21 03:04 Toxic Granulation Not Reportable 09/06/21 03:04 Toxic Vacuolation Not Reportable 09/06/21 03:04 Dohle Bodies Not Reportable 09/06/21 03:04 Pelger-Huet Anomaly Not Reportable 09/06/21 03:04 Malick Rods Not Reportable 09/06/21 03:04 Platelet Estimate Consistent w auto 09/06/21 03:04 Clumped Platelets Not Reportable 09/06/21 03:04 Plt Clumps, EDTA Not Reportable 09/06/21 03:04 Large Platelets Not Reportable 09/06/21 03:04 Giant Platelets Not Reportable 09/06/21 03:04 Platelet Satelliting Not Reportable 09/06/21 03:04 Plt Morphology Comment Not Reportable 09/06/21 03:04 RBC Morphology Normal 09/06/21 03:04 Dimorphic RBCs Not Reportable 09/06/21 03:04 Polychromasia Not Reportable 09/06/21 03:04 Hypochromasia Not Reportable 09/06/21 03:04 Poikilocytosis Not Reportable 09/06/21 03:04 Anisocytosis Not Reportable 09/06/21 03:04 Microcytosis Not Reportable 09/06/21 03:04 Macrocytosis Not Reportable 09/06/21 03:04 Spherocytes Not Reportable 09/06/21 03:04 Pappenheimer Bodies Not Reportable 09/06/21 03:04 Sickle Cells Not Reportable 09/06/21 03:04 Target Cells Not Reportable 09/06/21 03:04 Tear Drop Cells Not Reportable 09/06/21 03:04 Ovalocytes Not Reportable 09/06/21 03:04 Helmet Cells Not Reportable 09/06/21 03:04 [place] Bodies Not Reportable 09/06/21 03:04 [place] Rings Not Reportable 09/06/21 03:04 [place] Cells Not Reportable 09/06/21 03:04 Bite Cells Not Reportable 09/06/21 03:04 Crenated Cell Not Reportable 09/06/21 03:04 Elliptocytes Not Reportable 09/06/21 03:04 Acanthocytes (Spur) Not Reportable 09/06/21 03:04 Rouleaux Not Reportable 09/06/21 03:04 Hemoglobin C Crystals Not Reportable 09/06/21 03:04 Schistocytes Not Reportable 09/06/21 03:04 Malaria parasites Not Reportable 09/06/21 03:04 [place] Bodies Not Reportable 09/06/21 03:04 Hem Pathologist Commnt No 09/06/21 03:04 D-Dimer 545.84 ng/mlDDU (0-234) H 09/05/21 19:50 Sodium 141 mmol/L (137-145) 09/06/21 03:04 Potassium 3.0 mmol/L (3.6-5.0) L 09/06/21 03:04 Chloride 102.5 mmol/L (98-107) 09/06/21 03:04 Carbon Dioxide 19 mmol/L (22-30) L 09/06/21 03:04 Anion Gap 23 mmol/L 09/06/21 03:04 BUN 6 mg/dL (9-20) L 09/06/21 03:04 Creatinine 0.6 mg/dL (0.8-1.3) L 09/06/21 03:04 Estimated GFR > 60 ml/min 09/06/21 03:04 BUN/Creatinine Ratio 10 % 09/06/21 03:04 Glucose 154 mg/dL (75-100) H 09/06/21 03:04 Calcium 7.9 mg/dL (8.4-10.2) L 09/06/21 03:04 Ferritin 672.7 ng/mL (30.0-300.0) H 09/05/21 19:50 Total Bilirubin 0.50 mg/dL (0.1-1.2) 09/05/21 19:11 AST 25 units/L (5-40) 09/05/21 19:11 ALT 13 units/L (7-56) 09/05/21 19:11 Alkaline Phosphatase 68 units/L (35-129) 09/05/21 19:11 Lactate Dehydrogenase 317 units/L (91-180) H 09/05/21 19:50 C-Reactive Protein 9.90 mg/dL (0.00-1.30) H 09/05/21 19:50 Total Protein 7.2 g/dL (6.3-8.2) 09/05/21 19:11 Albumin 3.4 g/dL (3.9-5) L 09/05/21 19:11 Albumin/Globulin Ratio 0.9 % 09/05/21 19:11 Microbiology: Microbiology 09/05/21 20:23 Peripheral/Venous Blood Culture - Preliminary Culture in Progress 09/05/21 20:34 Peripheral/Venous Blood Culture - Preliminary Culture in Progress Active Medications - Current Medications Current Medications: Generic Name Dose Route Start Last Admin Trade Name Jelena PRN Reason Stop Dose Admin Acetaminophen 650 mg 09/05/21 19:47 Acetaminophen 325 Mg Tab PO Q4H PRN Pain MILD(1-3)/Fever >100.5/WELDON Albuterol 2.5 mg 09/05/21 19:47 09/06/21 04:18 Albuterol 2.5 Mg/3 Ml Nebu IH 2.5 mg Q4HRT PRN Administration Shortness Of Breath Ascorbic Acid 500 mg 09/05/21 22:00 09/06/21 01:02 Ascorbic Acid 500 Mg Tab PO 500 mg BID JOSÉ MIGUEL Administration Aspirin 81 mg 09/06/21 10:00 Aspirin 81 Mg Tab Chew PO QDAY JOSÉ MIGUEL Cholecalciferol 1,000 unit 09/06/21 10:00 Cholecalciferol (Vit D3) 1000 Unit (25 Mcg) Tab PO QDAY [facility] Dexamethasone 8 mg 09/06/21 10:00 Dexamethasone 4 Mg Tab PO DAILY [facility] Heparin Sodium (Porcine) 5,000 unit 09/05/21 22:00 09/06/21 01:02 Heparin 5,000 Unit/1 Ml Vial SUB-Q 5,000 unit Q12HR JOSÉ MIGUEL Administration Hydromorphone HCl 0.5 mg 09/05/21 19:47 Hydromorphone 1 Mg/1 Ml Inj IV Q23H PRN Pain , Severe (7-10) Levofloxacin 750 mg 09/06/21 22:00 Levofloxacin 750 Mg Tab PO 09/09/21 22:01 Q24H [facility] Protocol Ondansetron HCl 4 mg 09/05/21 19:47 Ondansetron 4 Mg/2 Ml Inj IV Q8H PRN Nausea And Vomiting Oxycodone/Acetaminophen 1 tab 09/05/21 19:47 Oxycodone /Acetaminophen 5-325mg Tab PO Q16H PRN Pain, Moderate (4-6) Potassium Chloride 40 meq 09/06/21 08:00 Potassium Chloride Er 20 Meq Tab PO 09/06/21 12:00 ONCE@0800 [facility] Sodium Chloride 10 ml 09/05/21 22:00 09/05/21 22:02 Sodium Chloride 0.9% 10 Ml Flush Syringe IV 10 ml BID JOSÉ MIGUEL Administration Sodium Chloride 10 ml 09/05/21 19:47 Sodium Chloride 0.9% 10 Ml Flush Syringe IV PRN PRN LINE FLUSH Zinc Sulfate 220 mg 09/05/21 22:00 09/06/21 01:02 Zinc Sulfate 220 Mg Cap PO 220 mg BID JOSÉ MIGUEL Administration
[2021-09-06] MEDS: DEXAMETHASONE 4 MG TAB PO SCH (12:05)
[2021-09-06] MEDS: ASPIRIN 81 MG TAB CHEW PO SCH (12:05)
[2021-09-06] MEDS: CHOLECALCIFEROL (VIT D3) 1000 UNIT (25 mcg) TAB PO SCH (12:06)
[2021-09-06] MEDS: levoFLOXacin 750 MG TAB PO SCH (22:09)
[2021-09-07 06:32] LABS: Blood Urea Nitrogen 9 mg/dL (9-20); Calcium 8.2 mg/dL (8.4-10.2); Hemolysis Index 2
[2021-09-07 06:43] LABS: BUN/Creatinine Ratio 23
[2021-09-07 08:33] LABS: Alanine Aminotransferase 12 units/L (7-56); Albumin 3.3 g/dL (3.9-5); Blood Urea Nitrogen 10 mg/dL (9-20); Calcium 8.5 mg/dL (8.4-10.2); Hemolysis Index 3
[2021-09-07 08:38] LABS: BUN/Creatinine Ratio 20
[2021-09-07] MEDS ORDERED: REMDESIVIR 200 MG in SODIUM CHLORIDE 0.9% 250ML 250 ML IV NR (10:00)
--- NOTE | 2021-09-07 10:02 | Progress Note ---
Assessment and Plan Assessment and plan: 61 YO Male with HTN, Asthma, Nicotine Dependence, PSA presents to ED for evaluation. Patient reports "I am coughing and then having a problem breathing". Patient states that he has experienced shortness of breath, fever, chills, body aches, multiple loose stools, diminished sense of smell, diminished sense of taste, decreased exercise tolerance, malaise over the past 1 week with worsening symptoms over the same timeframe. Patient transported to [facility] via private vehicle for further care and evaluation of the aforementioned symptoms. The patient was seen and evaluated in the emergency department. All lab and imaging studies reviewed. Patient found to have a pulse oximetry of 86% on room air with exertion which is consistent with acute hypoxemic respiratory failure. Chest x-ray revealed bilateral pneumonia. Patient admitted to the medical floor and initiated on pneumonia protocol as well as coronavirus protocol. Patient denies fever, chills, productive cough but denies skin rash, unilateral leg swelling, trauma, individual/family history of DVT/PE/bleeding/blood clotting disorders. Prior admission on 07/08/2016 reviewed. All medication listed at time of admission has been reconciled. Advanced care planning conducted in ED. Patient is not vaccinated against COVID-19. Chest x-ray shows bibasilar multifocal pneumonia (1) Acute hypoxemic respiratory failure (2) Pneumonia (3) Suspected 2019 novel coronavirus infection (4) Hypertension (5) COVID-19 vaccination not done (6) Tobacco use disorder (7) Hypokalemia-corrected Plan 09/07: Continue to encourage deep inspiration will start on incentive spirometer Patient's Covid test did come back positive remdesivir has been ordered in addition to the steroids and also ID consult has been placed. Continue supportive care Oxygen support Continue steroid therapy Counseling on compliance with COVID vaccination Tobacco cessation advice was provided to the patient-15 mins counselling Further plan of care to be determined by clinical progression in the next 24 Plan decided with the patient History Interval history: Patient seen and examined this morning still with cough and some shortness of breath saturating is on 4 L of oxygen not sure if this is due to desaturation or if something else happened. It appears that he sometimes desaturates to the 80s per the respiratory therapist and when he takes deep breaths it improves Hospitalist Physical - Physical exam Narrative exam: VITAL SIGNS: Reviewed. GENERAL: The patient appears normally developed, intermittent coughing spell persist vital signs as documented. HEAD: No signs of head trauma. EYES: Pupils are equal. Extraocular motions intact. EARS: Hearing grossly intact. MOUTH: Oropharynx is normal. NECK: No adenopathy, no JVD. CHEST: Chest with crackles breath sounds bilaterally. No wheezes, rales, or rhonchi. CARDIAC: Regular rate and rhythm. S1 and S2, without murmurs, gallops, or rubs. VASCULAR: No Edema. Peripheral pulses normal and equal in all extremities. ABDOMEN: Soft, non tender and non distended. No rebound or guarding, and no masses palpated. Bowel Sounds normal. MUSCULOSKELETAL: Good range of motion of all major joints. Extremities without clubbing, cyanosis or edema. NEUROLOGIC EXAM: Alert and oriented x 3 No focal sensory or strength deficits. Speech normal. Follows commands. PSYCHIATRIC: Mood normal. SKIN: detail exam as documented in skin assessment - Constitutional Vitals: Temp Pulse Resp BP Pulse Ox 98.2 F 78 20 114/73 95 09/07/21 06:06 09/07/21 06:06 09/07/21 06:06 09/07/21 06:06 09/07/21 06:06 General appearance: Present: mild distress Results - Labs CBC & Chem 7: 09/06/21 03:04 09/07/21 05:43 Labs: Laboratory Last Values WBC 8.4 K/mm3 (4.5-11.0) 09/06/21 03:04 RBC 3.77 M/mm3 (3.65-5.03) 09/06/21 03:04 Hgb 12.3 gm/dl (11.8-15.2) 09/06/21 03:04 Hct 35.9 % (35.5-45.6) 09/06/21 03:04 MCV 95 fl (84-94) H 09/06/21 03:04 MCH 33 pg (28-32) H 09/06/21 03:04 MCHC 34 % (32-34) 09/06/21 03:04 RDW 15.4 % (13.2-15.2) H 09/06/21 03:04 Plt Count 301 K/mm3 (140-440) 09/06/21 03:04 Lymph % (Auto) 18.5 % (13.4-35.0) 09/05/21 19:11 [place] % (Auto) 10.7 % (0.0-7.3) H 09/05/21 19:11 Eos % (Auto) 0.1 % (0.0-4.3) 09/05/21 19:11 Baso % (Auto) 0.2 % (0.0-1.8) 09/05/21 19:11 Lymph # (Auto) 1.4 K/mm3 (1.2-5.4) 09/05/21 19:11 [place] # (Auto) 0.8 K/mm3 (0.0-0.8) 09/05/21 19:11 Eos # (Auto) 0.0 K/mm3 (0.0-0.4) 09/05/21 19:11 Baso # (Auto) 0.0 K/mm3 (0.0-0.1) 09/05/21 19:11 Add Manual Diff Complete 09/06/21 03:04 Total Counted 100 09/06/21 03:04 Seg Neutrophils % Die Try Out Worker Stamping 09/06/21 03:04 Seg Neuts % (Manual) 96.0 % (40.0-70.0) H 09/06/21 03:04 Band Neutrophils % 0 % 09/06/21 03:04 Lymphocytes % (Manual) 3.0 % (13.4-35.0) L 09/06/21 03:04 Reactive Lymphs % (Man) 0 % 09/06/21 03:04 Monocytes % (Manual) 1.0 % (0.0-7.3) 09/06/21 03:04 Eosinophils % (Manual) 0 % (0.0-4.3) 09/06/21 03:04 Basophils % (Manual) 0 % (0.0-1.8) 09/06/21 03:04 Metamyelocytes % 0 % 09/06/21 03:04 Myelocytes % 0 % 09/06/21 03:04 Promyelocytes % 0 % 09/06/21 03:04 Blast Cells % 0 % 09/06/21 03:04 Nucleated RBC % Not Reportable 09/06/21 03:04 Seg Neutrophils # 5.2 K/mm3 (1.8-7.7) 09/05/21 19:11 Seg Neutrophils # Man 8.1 K/mm3 (1.8-7.7) H 09/06/21 03:04 Band Neutrophils # 0.0 K/mm3 09/06/21 03:04 Lymphocytes # (Manual) 0.3 K/mm3 (1.2-5.4) L 09/06/21 03:04 Abs React Lymphs (Man) 0.0 K/mm3 09/06/21 03:04 Monocytes # (Manual) 0.1 K/mm3 (0.0-0.8) 09/06/21 03:04 Eosinophils # (Manual) 0.0 K/mm3 (0.0-0.4) 09/06/21 03:04 Basophils # (Manual) 0.0 K/mm3 (0.0-0.1) 09/06/21 03:04 Metamyelocytes # 0.0 K/mm3 09/06/21 03:04 Myelocytes # 0.0 K/mm3 09/06/21 03:04 Promyelocytes # 0.0 K/mm3 09/06/21 03:04 Blast Cells # 0.0 K/mm3 09/06/21 03:04 WBC Morphology Not Reportable 09/06/21 03:04 Hypersegmented Neuts Not Reportable 09/06/21 03:04 Hyposegmented Neuts Not Reportable 09/06/21 03:04 Hypogranular Neuts Not Reportable 09/06/21 03:04 Smudge Cells Not Reportable 09/06/21 03:04 Toxic Granulation Not Reportable 09/06/21 03:04 Toxic Vacuolation Not Reportable 09/06/21 03:04 Dohle Bodies Not Reportable 09/06/21 03:04 Pelger-Huet Anomaly Not Reportable 09/06/21 03:04 Malick Rods Not Reportable 09/06/21 03:04 Platelet Estimate Consistent w auto 09/06/21 03:04 Clumped Platelets Not Reportable 09/06/21 03:04 Plt Clumps, EDTA Not Reportable 09/06/21 03:04 Large Platelets Not Reportable 09/06/21 03:04 Giant Platelets Not Reportable 09/06/21 03:04 Platelet Satelliting Not Reportable 09/06/21 03:04 Plt Morphology Comment Not Reportable 09/06/21 03:04 RBC Morphology Normal 09/06/21 03:04 Dimorphic RBCs Not Reportable 09/06/21 03:04 Polychromasia Not Reportable 09/06/21 03:04 Hypochromasia Not Reportable 09/06/21 03:04 Poikilocytosis Not Reportable 09/06/21 03:04 Anisocytosis Not Reportable 09/06/21 03:04 Microcytosis Not Reportable 09/06/21 03:04 Macrocytosis Not Reportable 09/06/21 03:04 Spherocytes Not Reportable 09/06/21 03:04 Pappenheimer Bodies Not Reportable 09/06/21 03:04 Sickle Cells Not Reportable 09/06/21 03:04 Target Cells Not Reportable 09/06/21 03:04 Tear Drop Cells Not Reportable 09/06/21 03:04 Ovalocytes Not Reportable 09/06/21 03:04 Helmet Cells Not Reportable 09/06/21 03:04 [place] Bodies Not Reportable 09/06/21 03:04 [place] Rings Not Reportable 09/06/21 03:04 [place] Cells Not Reportable 09/06/21 03:04 Bite Cells Not Reportable 09/06/21 03:04 Crenated Cell Not Reportable 09/06/21 03:04 Elliptocytes Not Reportable 09/06/21 03:04 Acanthocytes (Spur) Not Reportable 09/06/21 03:04 Rouleaux Not Reportable 09/06/21 03:04 Hemoglobin C Crystals Not Reportable 09/06/21 03:04 Schistocytes Not Reportable 09/06/21 03:04 Malaria parasites Not Reportable 09/06/21 03:04 [place] Bodies Not Reportable 09/06/21 03:04 Hem Pathologist Commnt No 09/06/21 03:04 D-Dimer 545.84 ng/mlDDU (0-234) H 09/05/21 19:50 Sodium 139 mmol/L (137-145) 09/07/21 05:43 Sodium 141 mmol/L (137-145) 09/07/21 05:43 Potassium 3.7 mmol/L (3.6-5.0) 09/07/21 05:43 Potassium 3.9 mmol/L (3.6-5.0) D 09/07/21 05:43 Chloride 104.7 mmol/L (98-107) 09/07/21 05:43 Chloride 106.1 mmol/L (98-107) 09/07/21 05:43 Carbon Dioxide 23 mmol/L (22-30) 09/07/21 05:43 Carbon Dioxide 24 mmol/L (22-30) 09/07/21 05:43 Anion Gap 14 mmol/L 09/07/21 05:43 Anion Gap 16 mmol/L 09/07/21 05:43 BUN 9 mg/dL (9-20) 09/07/21 05:43 BUN 10 mg/dL (9-20) 09/07/21 05:43 Creatinine 0.4 mg/dL (0.8-1.3) L 09/07/21 05:43 Creatinine 0.5 mg/dL (0.8-1.3) L 09/07/21 05:43 Estimated GFR > 60 ml/min 09/07/21 05:43 Estimated GFR > 60 ml/min 09/07/21 05:43 BUN/Creatinine Ratio 20 % 09/07/21 05:43 BUN/Creatinine Ratio 23 % 09/07/21 05:43 Glucose 149 mg/dL (75-100) H 09/07/21 05:43 Glucose 149 mg/dL (75-100) H 09/07/21 05:43 Calcium 8.2 mg/dL (8.4-10.2) L 09/07/21 05:43 Calcium 8.5 mg/dL (8.4-10.2) 09/07/21 05:43 Ferritin 672.7 ng/mL (30.0-300.0) H 09/05/21 19:50 Total Bilirubin 0.20 mg/dL (0.1-1.2) 09/07/21 05:43 AST 21 units/L (5-40) 09/07/21 05:43 ALT 12 units/L (7-56) 09/07/21 05:43 Alkaline Phosphatase 58 units/L (35-129) 09/07/21 05:43 Lactate Dehydrogenase 317 units/L (91-180) H 09/05/21 19:50 C-Reactive Protein 9.90 mg/dL (0.00-1.30) H 09/05/21 19:50 Total Protein 6.4 g/dL (6.3-8.2) 09/07/21 05:43 Albumin 3.3 g/dL (3.9-5) L 09/07/21 05:43 Albumin/Globulin Ratio 1.1 % 09/07/21 05:43 Coronavirus (PCR) Positive (Negative) A 09/06/21 Unknown Microbiology: Microbiology 09/05/21 20:34 Peripheral/Venous Blood Culture - Preliminary NO GROWTH AFTER 24 HOURS 09/05/21 20:23 Peripheral/Venous Blood Culture - Preliminary NO GROWTH AFTER 24 HOURS Saez/IV: Voiding Method Toilet Active Medications - Current Medications Current Medications: Generic Name Dose Route Start Last Admin Trade Name Freq PRN Reason Stop Dose Admin Acetaminophen 650 mg 09/05/21 19:47 Acetaminophen 325 Mg Tab PO Q4H PRN Pain MILD(1-3)/Fever >100.5/WELDON Albuterol 2.5 mg 09/05/21 19:47 09/06/21 04:18 Albuterol 2.5 Mg/3 Ml Nebu IH 2.5 mg Q4HRT PRN Administration Shortness Of Breath Ascorbic Acid 500 mg 09/05/21 22:00 09/06/21 22:09 Ascorbic Acid 500 Mg Tab PO 500 mg BID JOSÉ MIGUEL Administration Aspirin 81 mg 09/06/21 10:00 09/06/21 12:05 Aspirin 81 Mg Tab Chew PO 81 mg QDAY JOSÉ MIGUEL Administration Cholecalciferol 1,000 unit 09/06/21 10:00 09/06/21 12:06 Cholecalciferol (Vit D3) 1000 Unit (25 Mcg) Tab PO 1,000 unit QDAY JOSÉ MIGUEL Administration Dexamethasone 8 mg 09/06/21 10:00 09/06/21 12:05 Dexamethasone 4 Mg Tab PO 8 mg DAILY JOSÉ MIGUEL Administration Heparin Sodium (Porcine) 5,000 unit 09/05/21 22:00 09/06/21 22:10 Heparin 5,000 Unit/1 Ml Vial SUB-Q 5,000 unit Q12HR JOSÉ MIGUEL Administration Hydromorphone HCl 0.5 mg 09/05/21 19:47 Hydromorphone 1 Mg/1 Ml Inj IV Q23H PRN Pain , Severe (7-10) REMDESIVIR 200 mg/ Sodium 250 mls @ 500 mls/hr 09/07/21 10:00 Chloride IV 09/07/21 10:30 ONCE NR REMDESIVIR 100 mg/ Sodium 250 mls @ 500 mls/hr 09/08/21 21:00 Chloride IV 09/11/21 21:29 Q24HR@2100 JOSÉ MIGUEL Levofloxacin 750 mg 09/06/21 22:00 09/06/21 22:09 Levofloxacin 750 Mg Tab PO 09/09/21 22:01 750 mg Q24H JOSÉ MIGUEL Administration Protocol Ondansetron HCl 4 mg 09/05/21 19:47 Ondansetron 4 Mg/2 Ml Inj IV Q8H PRN Nausea And Vomiting Oxycodone/Acetaminophen 1 tab 09/05/21 19:47 Oxycodone /Acetaminophen 5-325mg Tab PO Q16H PRN Pain, Moderate (4-6) Sodium Chloride 10 ml 09/05/21 22:00 09/06/21 22:10 Sodium Chloride 0.9% 10 Ml Flush Syringe IV 10 ml BID JOSÉ MIGUEL Administration Sodium Chloride 10 ml 09/05/21 19:47 Sodium Chloride 0.9% 10 Ml Flush Syringe IV PRN PRN LINE FLUSH Sodium Chloride 50 ml 09/08/21 21:00 Sodium Chloride 0.9% 50 Ml Ivpb IV 09/11/21 21:01 Q24HR@2100 JOSÉ MIGUEL Sodium Chloride 50 ml 09/07/21 10:30 Sodium Chloride 0.9% 50 Ml Ivpb IV 09/07/21 10:31 ONCE ONE Zinc Sulfate 220 mg 09/05/21 22:00 09/06/21 22:09 Zinc Sulfate 220 Mg Cap PO 220 mg BID JOSÉ MIGUEL Administration
[2021-09-07] MEDS ORDERED: SODIUM CHLORIDE 0.9% 50 ML IVPB IV ONE (10:30)
[2021-09-07] MEDS: HEPARIN 5,000 UNIT/1 ML VIAL SUB-Q SCH ×2 (12:51→21:34)
[2021-09-07] MEDS: DEXAMETHASONE 4 MG TAB PO SCH (12:51)
[2021-09-07] MEDS: ASPIRIN 81 MG TAB CHEW PO SCH (12:51)
[2021-09-07] MEDS: ZINC SULFATE 220 MG CAP PO SCH ×2 (12:52→21:35)
[2021-09-07] MEDS: ASCORBIC ACID 500 MG TAB PO SCH ×2 (12:52→21:34)
[2021-09-07] MEDS: CHOLECALCIFEROL (VIT D3) 1000 UNIT (25 mcg) TAB PO SCH (12:52)
[2021-09-07] MEDS: levoFLOXacin 750 MG TAB PO SCH (21:34)
[2021-09-08] MEDS ORDERED: guaiFENesin DM 200/20 MG ORAL LIQD 10 ML PO PRN (11:55)
[2021-09-08] MEDS: DEXAMETHASONE 4 MG TAB PO SCH (12:10)
[2021-09-08] MEDS: ASPIRIN 81 MG TAB CHEW PO SCH (12:10)
--- NOTE | 2021-09-08 12:10 | Progress Note ---
Assessment and Plan Assessment and plan: 61 YO Male with HTN, Asthma, Nicotine Dependence, PSA presents to ED for evaluation. Patient reports "I am coughing and then having a problem breathing". Patient states that he has experienced shortness of breath, fever, chills, body aches, multiple loose stools, diminished sense of smell, diminished sense of taste, decreased exercise tolerance, malaise over the past 1 week with worsening symptoms over the same timeframe. Patient transported to [facility] via private vehicle for further care and evaluation of the aforementioned symptoms. The patient was seen and evaluated in the emergency department. All lab and imaging studies reviewed. Patient found to have a pulse oximetry of 86% on room air with exertion which is consistent with acute hypoxemic respiratory failure. Chest x-ray revealed bilateral pneumonia. Patient admitted to the medical floor and initiated on pneumonia protocol as well as coronavirus protocol. Patient denies fever, chills, productive cough but denies skin rash, unilateral leg swelling, trauma, individual/family history of DVT/PE/bleeding/blood clotting disorders. Prior admission on 07/08/2016 reviewed. All medication listed at time of admission has been reconciled. Advanced care planning conducted in ED. Patient is not vaccinated against COVID-19. Chest x-ray shows bibasilar multifocal pneumonia (1) Acute hypoxemic respiratory failure (2) Pneumonia (3) Suspected 2019 novel coronavirus infection (4) Hypertension (5) COVID-19 vaccination not done (6) Tobacco use disorder (7) Hypokalemia-corrected Plan 09/07: Continue to encourage deep inspiration will start on incentive spirometer 09/08: I did repeat Robitussin to his regimen. Anticipating the patient to be discharged in a.m. we will obtain a home O2 evaluation today. If his pulmonary status is worsening will recommend pulmonary consult in a.m. Patient's Covid test did come back positive remdesivir has been ordered in addition to the steroids and also ID consult has been placed. Continue supportive care Oxygen support Continue steroid therapy Counseling on compliance with COVID vaccination Tobacco cessation advice was provided to the patient-15 mins counselling Further plan of care to be determined by clinical progression in the next 24 Plan decided with the patient History Interval history: Patient seen and examined this morning still with cough remains on 4 L of oxygen. Says he has abdominal pain from persistent cough rates a 2/10 in intensity but just appears uncomfortable Hospitalist Physical - Physical exam Narrative exam: VITAL SIGNS: Reviewed. GENERAL: The patient appears normally developed, intermittent coughing spell persist vital signs as documented. HEAD: No signs of head trauma. EYES: Pupils are equal. Extraocular motions intact. EARS: Hearing grossly intact. MOUTH: Oropharynx is normal. NECK: No adenopathy, no JVD. CHEST: Chest with crackles breath sounds bilaterally. No wheezes, rales, or r honchi. CARDIAC: Regular rate and rhythm. S1 and S2, without murmurs, gallops, or rubs. VASCULAR: No Edema. Peripheral pulses normal and equal in all extremities. ABDOMEN: Soft, non tender and non distended. No rebound or guarding, and no masses palpated. Bowel Sounds normal. MUSCULOSKELETAL: Good range of motion of all major joints. Extremities without clubbing, cyanosis or edema. NEUROLOGIC EXAM: Alert and oriented x 3 No focal sensory or strength deficits. Speech normal. Follows commands. PSYCHIATRIC: Mood normal. SKIN: detail exam as documented in skin assessment - Constitutional Vitals: Temp Pulse Resp BP Pulse Ox 98.5 F 60 20 138/80 100 09/07/21 22:08 09/07/21 22:08 09/07/21 22:08 09/07/21 22:08 09/07/21 22:08 General appearance: Present: mild distress Results - Labs CBC & Chem 7: 09/06/21 03:04 09/07/21 05:43 Labs: Laboratory Last Values WBC 8.4 K/mm3 (4.5-11.0) 09/06/21 03:04 RBC 3.77 M/mm3 (3.65-5.03) 09/06/21 03:04 Hgb 12.3 gm/dl (11.8-15.2) 09/06/21 03:04 Hct 35.9 % (35.5-45.6) 09/06/21 03:04 MCV 95 fl (84-94) H 09/06/21 03:04 MCH 33 pg (28-32) H 09/06/21 03:04 MCHC 34 % (32-34) 09/06/21 03:04 RDW 15.4 % (13.2-15.2) H 09/06/21 03:04 Plt Count 301 K/mm3 (140-440) 09/06/21 03:04 Lymph % (Auto) 18.5 % (13.4-35.0) 09/05/21 19:11 [place] % (Auto) 10.7 % (0.0-7.3) H 09/05/21 19:11 Eos % (Auto) 0.1 % (0.0-4.3) 09/05/21 19:11 Baso % (Auto) 0.2 % (0.0-1.8) 09/05/21 19:11 Lymph # (Auto) 1.4 K/mm3 (1.2-5.4) 09/05/21 19:11 [place] # (Auto) 0.8 K/mm3 (0.0-0.8) 09/05/21 19:11 Eos # (Auto) 0.0 K/mm3 (0.0-0.4) 09/05/21 19:11 Baso # (Auto) 0.0 K/mm3 (0.0-0.1) 09/05/21 19:11 Add Manual Diff Complete 09/06/21 03:04 Total Counted 100 09/06/21 03:04 Seg Neutrophils % Guidance Services Coordinator 09/06/21 03:04 Seg Neuts % (Manual) 96.0 % (40.0-70.0) H 09/06/21 03:04 Band Neutrophils % 0 % 09/06/21 03:04 Lymphocytes % (Manual) 3.0 % (13.4-35.0) L 09/06/21 03:04 Reactive Lymphs % (Man) 0 % 09/06/21 03:04 Monocytes % (Manual) 1.0 % (0.0-7.3) 09/06/21 03:04 Eosinophils % (Manual) 0 % (0.0-4.3) 09/06/21 03:04 Basophils % (Manual) 0 % (0.0-1.8) 09/06/21 03:04 Metamyelocytes % 0 % 09/06/21 03:04 Myelocytes % 0 % 09/06/21 03:04 Promyelocytes % 0 % 09/06/21 03:04 Blast Cells % 0 % 09/06/21 03:04 Nucleated RBC % Not Reportable 09/06/21 03:04 Seg Neutrophils # 5.2 K/mm3 (1.8-7.7) 09/05/21 19:11 Seg Neutrophils # Man 8.1 K/mm3 (1.8-7.7) H 09/06/21 03:04 Band Neutrophils # 0.0 K/mm3 09/06/21 03:04 Lymphocytes # (Manual) 0.3 K/mm3 (1.2-5.4) L 09/06/21 03:04 Abs React Lymphs (Man) 0.0 K/mm3 09/06/21 03:04 Monocytes # (Manual) 0.1 K/mm3 (0.0-0.8) 09/06/21 03:04 Eosinophils # (Manual) 0.0 K/mm3 (0.0-0.4) 09/06/21 03:04 Basophils # (Manual) 0.0 K/mm3 (0.0-0.1) 09/06/21 03:04 Metamyelocytes # 0.0 K/mm3 09/06/21 03:04 Myelocytes # 0.0 K/mm3 09/06/21 03:04 Promyelocytes # 0.0 K/mm3 09/06/21 03:04 Blast Cells # 0.0 K/mm3 09/06/21 03:04 WBC Morphology Not Reportable 09/06/21 03:04 Hypersegmented Neuts Not Reportable 09/06/21 03:04 Hyposegmented Neuts Not Reportable 09/06/21 03:04 Hypogranular Neuts Not Reportable 09/06/21 03:04 Smudge Cells Not Reportable 09/06/21 03:04 Toxic Granulation Not Reportable 09/06/21 03:04 Toxic Vacuolation Not Reportable 09/06/21 03:04 Dohle Bodies Not Reportable 09/06/21 03:04 Pelger-Huet Anomaly Not Reportable 09/06/21 03:04 Malick Rods Not Reportable 09/06/21 03:04 Platelet Estimate Consistent w auto 09/06/21 03:04 Clumped Platelets Not Reportable 09/06/21 03:04 Plt Clumps, EDTA Not Reportable 09/06/21 03:04 Large Platelets Not Reportable 09/06/21 03:04 Giant Platelets Not Reportable 09/06/21 03:04 Platelet Satelliting Not Reportable 09/06/21 03:04 Plt Morphology Comment Not Reportable 09/06/21 03:04 RBC Morphology Normal 09/06/21 03:04 Dimorphic RBCs Not Reportable 09/06/21 03:04 Polychromasia Not Reportable 09/06/21 03:04 Hypochromasia Not Reportable 09/06/21 03:04 Poikilocytosis Not Reportable 09/06/21 03:04 Anisocytosis Not Reportable 09/06/21 03:04 Microcytosis Not Reportable 09/06/21 03:04 Macrocytosis Not Reportable 09/06/21 03:04 Spherocytes Not Reportable 09/06/21 03:04 Pappenheimer Bodies Not Reportable 09/06/21 03:04 Sickle Cells Not Reportable 09/06/21 03:04 Target Cells Not Reportable 09/06/21 03:04 Tear Drop Cells Not Reportable 09/06/21 03:04 Ovalocytes Not Reportable 09/06/21 03:04 Helmet Cells Not Reportable 09/06/21 03:04 [place] Bodies Not Reportable 09/06/21 03:04 [place] Rings Not Reportable 09/06/21 03:04 [place] Cells Not Reportable 09/06/21 03:04 Bite Cells Not Reportable 09/06/21 03:04 Crenated Cell Not Reportable 09/06/21 03:04 Elliptocytes Not Reportable 09/06/21 03:04 Acanthocytes (Spur) Not Reportable 09/06/21 03:04 Rouleaux Not Reportable 09/06/21 03:04 Hemoglobin C Crystals Not Reportable 09/06/21 03:04 Schistocytes Not Reportable 09/06/21 03:04 Malaria parasites Not Reportable 09/06/21 03:04 [place] Bodies Not Reportable 09/06/21 03:04 Hem Pathologist Commnt No 09/06/21 03:04 D-Dimer 545.84 ng/mlDDU (0-234) H 09/05/21 19:50 Sodium 139 mmol/L (137-145) 09/07/21 05:43 Sodium 141 mmol/L (137-145) 09/07/21 05:43 Potassium 3.7 mmol/L (3.6-5.0) 09/07/21 05:43 Potassium 3.9 mmol/L (3.6-5.0) D 09/07/21 05:43 Chloride 104.7 mmol/L (98-107) 09/07/21 05:43 Chloride 106.1 mmol/L (98-107) 09/07/21 05:43 Carbon Dioxide 23 mmol/L (22-30) 09/07/21 05:43 Carbon Dioxide 24 mmol/L (22-30) 09/07/21 05:43 Anion Gap 14 mmol/L 09/07/21 05:43 Anion Gap 16 mmol/L 09/07/21 05:43 BUN 9 mg/dL (9-20) 09/07/21 05:43 BUN 10 mg/dL (9-20) 09/07/21 05:43 Creatinine 0.4 mg/dL (0.8-1.3) L 09/07/21 05:43 Creatinine 0.5 mg/dL (0.8-1.3) L 09/07/21 05:43 Estimated GFR > 60 ml/min 09/07/21 05:43 Estimated GFR > 60 ml/min 09/07/21 05:43 BUN/Creatinine Ratio 20 % 09/07/21 05:43 BUN/Creatinine Ratio 23 % 09/07/21 05:43 Glucose 149 mg/dL (75-100) H 09/07/21 05:43 Glucose 149 mg/dL (75-100) H 09/07/21 05:43 Calcium 8.2 mg/dL (8.4-10.2) L 09/07/21 05:43 Calcium 8.5 mg/dL (8.4-10.2) 09/07/21 05:43 Ferritin 672.7 ng/mL (30.0-300.0) H 09/05/21 19:50 Total Bilirubin 0.20 mg/dL (0.1-1.2) 09/07/21 05:43 AST 21 units/L (5-40) 09/07/21 05:43 ALT 12 units/L (7-56) 09/07/21 05:43 Alkaline Phosphatase 58 units/L (35-129) 09/07/21 05:43 Lactate Dehydrogenase 317 units/L (91-180) H 09/05/21 19:50 C-Reactive Protein 9.90 mg/dL (0.00-1.30) H 09/05/21 19:50 Total Protein 6.4 g/dL (6.3-8.2) 09/07/21 05:43 Albumin 3.3 g/dL (3.9-5) L 09/07/21 05:43 Albumin/Globulin Ratio 1.1 % 09/07/21 05:43 Coronavirus (PCR) Positive (Negative) A 09/06/21 Unknown Microbiology: Microbiology 09/05/21 20:34 Peripheral/Venous Blood Culture - Preliminary NO GROWTH AFTER 48 HOURS 09/05/21 20:23 Peripheral/Venous Blood Culture - Preliminary NO GROWTH AFTER 48 HOURS Saez/IV: Voiding Method Toilet Active Medications - Current Medications Current Medications: Generic Name Dose Route Start Last Admin Trade Name Freq PRN Reason Stop Dose Admin Acetaminophen 650 mg 09/05/21 19:47 Acetaminophen 325 Mg Tab PO Q4H PRN Pain MILD(1-3)/Fever >100.5/WELDON Albuterol 2.5 mg 09/05/21 19:47 09/06/21 04:18 Albuterol 2.5 Mg/3 Ml Nebu IH 2.5 mg Q4HRT PRN Administration Shortness Of Breath Ascorbic Acid 500 mg 09/05/21 22:00 09/07/21 21:34 Ascorbic Acid 500 Mg Tab PO 500 mg BID JOSÉ MIGUEL Administration Aspirin 81 mg 09/06/21 10:00 09/07/21 12:51 Aspirin 81 Mg Tab Chew PO 81 mg QDAY JOSÉ MIGUEL Administration Cholecalciferol 1,000 unit 09/06/21 10:00 09/07/21 12:52 Cholecalciferol (Vit D3) 1000 Unit (25 Mcg) Tab PO 1,000 unit QDAY JOSÉ MIGUEL Administration Dexamethasone 8 mg 09/06/21 10:00 09/07/21 12:51 Dexamethasone 4 Mg Tab PO 8 mg DAILY JOSÉ MIGUEL Administration Guaifenesin 20 ml 09/08/21 11:55 Guaifenesin Dm 200/20 Mg Oral Liqd 10 Ml PO Q4H PRN Cough Heparin Sodium (Porcine) 5,000 unit 09/05/21 22:00 09/07/21 21:34 Heparin 5,000 Unit/1 Ml Vial SUB-Q 5,000 unit Q12HR JOSÉ MIGUEL Administration Hydromorphone HCl 0.5 mg 09/05/21 19:47 Hydromorphone 1 Mg/1 Ml Inj IV Q23H PRN Pain , Severe (7-10) REMDESIVIR 100 mg/ Sodium 250 mls @ 500 mls/hr 09/08/21 21:00 Chloride IV 09/11/21 21:29 Q24HR@2100 JOSÉ MIGUEL Levofloxacin 750 mg 09/06/21 22:00 09/07/21 21:34 Levofloxacin 750 Mg Tab PO 09/09/21 22:01 750 mg Q24H JOSÉ MIGUEL Administration Protocol Ondansetron HCl 4 mg 09/05/21 19:47 Ondansetron 4 Mg/2 Ml Inj IV Q8H PRN Nausea And Vomiting Oxycodone/Acetaminophen 1 tab 09/05/21 19:47 Oxycodone /Acetaminophen 5-325mg Tab PO Q16H PRN Pain, Moderate (4-6) Sodium Chloride 10 ml 09/05/21 22:00 09/07/21 21:35 Sodium Chloride 0.9% 10 Ml Flush Syringe IV 10 ml BID JOSÉ MIGUEL Administration Sodium Chloride 10 ml 09/05/21 19:47 Sodium Chloride 0.9% 10 Ml Flush Syringe IV PRN PRN LINE FLUSH Sodium Chloride 50 ml 09/08/21 21:00 Sodium Chloride 0.9% 50 Ml Ivpb IV 09/11/21 21:01 Q24HR@2100 JOSÉ MIGUEL Zinc Sulfate 220 mg 09/05/21 22:00 09/07/21 21:35 Zinc Sulfate 220 Mg Cap PO 220 mg BID JOSÉ MIGUEL Administration Nutrition/Malnutrition Assess - Dietary Evaluation Nutrition/Malnutrition Findings: Nutrition Notes Start: 09/07/21 10:58 Freq: Status: Active Protocol: Document 09/07/21 10:58 CW (Rec: 09/07/21 11:08 [id number]) Nutrition Notes Need for Assessment generated from: MST Initial or Follow up Assessment Current Diagnosis Hypertension,Respiratory Failure Other Pertinent Diagnosis Covid 19, pneu Current Diet Cardiac Labs/Tests BG 149 Pertinent Medications Decadron K dur Height 5 ft 11 in Weight 81.647 kg [place] Body Weight (kg) 78.18 BMI 25.1 Weight Status Appropriate Subjective/Other Information Screen for MST. No intake available in EHR. Pt unavailable by phone at this time. RN unavailable at this time. Will monitor intakes. Burn Absent Trauma Absent Minimum of two criteria No physical signs of malnutrition Is patient on ventilator? No Is Patient Ambulatory and/or Out of Bed Yes REE-([place]-St. Jeor-ambulatory/OOB) [ 2149.680 NUTR.[id number]] Calculation Used for Recommendations [facility] Nutrition Intervention Change Diet Order: Continue Current Diet as ordered Goal #1 Meet at least 75% of EER via PO Anticipated Discharge Needs: Cardiac Diet Follow-Up By: 09/11/21 Additional Comments F/U for stable intakes
[2021-09-08] MEDS: ASCORBIC ACID 500 MG TAB PO SCH ×2 (12:11→21:53)
[2021-09-08] MEDS: HEPARIN 5,000 UNIT/1 ML VIAL SUB-Q SCH ×2 (12:11→21:52)
[2021-09-08] MEDS: CHOLECALCIFEROL (VIT D3) 1000 UNIT (25 mcg) TAB PO SCH (12:12)
[2021-09-08] MEDS: ZINC SULFATE 220 MG CAP PO SCH ×2 (12:12→21:53)
[2021-09-08 12:47] LABS: Alanine Aminotransferase 14 units/L (7-56); Albumin 2.9 g/dL (3.9-5); Blood Urea Nitrogen 12 mg/dL (9-20); Calcium 8.4 mg/dL (8.4-10.2); Hemolysis Index 12
[2021-09-08 12:50] LABS: BUN/Creatinine Ratio 20
[2021-09-08] MEDS: REMDESIVIR 100 MG in SODIUM CHLORIDE 0.9% 250ML 250 ML IV SCH (21:51)
[2021-09-08] MEDS: SODIUM CHLORIDE 0.9% 50 ML IVPB IV SCH (21:51)
[2021-09-08] MEDS: levoFLOXacin 750 MG TAB PO SCH (21:53)
[2021-09-09 05:31] LABS: Alanine Aminotransferase 13 units/L (7-56); Albumin 2.9 g/dL (3.9-5); Blood Urea Nitrogen 12 mg/dL (9-20); Calcium 7.8 mg/dL (8.4-10.2); Hemolysis Index 12
[2021-09-09 05:48] LABS: BUN/Creatinine Ratio 24
[2021-09-09] MEDS: HEPARIN 5,000 UNIT/1 ML VIAL SUB-Q SCH ×2 (10:00→22:36)
[2021-09-09] MEDS: DEXAMETHASONE 4 MG TAB PO SCH (11:00)
[2021-09-09] MEDS: ASCORBIC ACID 500 MG TAB PO SCH ×2 (11:00→22:37)
[2021-09-09] MEDS: CHOLECALCIFEROL (VIT D3) 1000 UNIT (25 mcg) TAB PO SCH (11:00)
[2021-09-09] MEDS: ASPIRIN 81 MG TAB CHEW PO SCH (11:00)
[2021-09-09] MEDS: ZINC SULFATE 220 MG CAP PO SCH ×2 (11:00→22:36)
[2021-09-09] MEDS ORDERED: POTASSIUM CHLORIDE ER 20 MEQ TAB PO ONE (11:44)
--- NOTE | 2021-09-09 11:59 | Progress Note ---
Subjective Date of service: 09/09/21 Interval history: 61 YO Male with HTN, Asthma, Nicotine Dependence, PSA presents to ED for evaluation. Patient reports "I am coughing and then having a problem breathing". Patient states that he has experienced shortness of breath, fever, chills, body aches, multiple loose stools, diminished sense of smell, diminished sense of taste, decreased exercise tolerance, malaise over the past 1 week with worsening symptoms over the same timeframe. Patient transported to [facility] via private vehicle for further care and evaluation of the aforementioned symptoms. The patient was seen and evaluated in the emergency department. All lab and imaging studies reviewed. Patient found to have a pulse oximetry of 86% on room air with exertion which is consistent with acute hypoxemic respiratory failure. Chest x-ray revealed bilateral pneumonia. Patient admitted to the medical floor and initiated on pneumonia protocol as well as coronavirus protocol. Patient denies fever, chills, productive cough but denies skin rash, unilateral leg swelling, trauma, individual/family history of DVT/PE/bleeding/blood clotting disorders. Prior admission on 07/08/2016 reviewed. All medication listed at time of admission has been reconciled. Advanced care planning conducted in ED. Patient is not vaccinated against COVID-19. Acute hypoxic respiratory failure secondary to COVID-19 pneumonia Patient this morning is on 3 L oxygen via nasal cannula Wean as tolerated 6-minute walk prior to discharge COVID-19 pneumonia No inflammatory markers are seen since admission Procalcitonin was ordered on 09/05 and no results are available All inflammatory markers have been reordered Continue remdesivir-stop date 09/11 Continue Decadron Possible discharge once he completes remdesivir therapy/if necessary discharge on oxygen Hypertension Fair Hypokalemia Potassium supplemented this morning Monitor electrolytes Tobacco abuse Smoking cessation counseling was done Chest x-ray shows bibasilar multifocal pneumonia (1) Acute hypoxemic respiratory failure (2) Pneumonia (3) Suspected 2019 novel coronavirus infection (4) Hypertension (5) COVID-19 vaccination not done (6) Tobacco use disorder (7) Hypokalemia-corrected Plan 09/07: Continue to encourage deep inspiration will start on incentive spirometer 09/08: I did repeat Robitussin to his regimen. Anticipating the patient to be discharged in a.m. we will obtain a home O2 evaluation today. If his pulmonary status is worsening will recommend pulmonary consult in a.m. 09/09 patient is awake and alert, not wearing oxygen. Nasal cannula inserted. He is on 3 L oxygen. Complains of dry cough and shortness of breath States he is not vaccinated against Covid 19. He denies any fever or chills. Denies chest pain . Oxygen support Continue steroid therapy Counseling on compliance with COVID vaccination Tobacco cessation advice was provided to the patient-15 mins counselling Objective - Constitutional Vitals: Vital Signs - 12hr 09/09/21 09/09/21 00:00 05:37 Temperature 97.7 F Pulse Rate 63 Respiratory 18 Rate Blood Pressure 145/87 O2 Sat by Pulse 95 87 Oximetry General appearance: Present: no acute distress, well-nourished - EENT Eyes: PERRL, EOM intact ENT: hearing intact, clear oral mucosa - Neck Neck: supple, normal ROM - Respiratory Respiratory effort: normal Respiratory: bilateral: diminished, negative: rhonchi, wheezing - Cardiovascular Rhythm: regular Heart Sounds: Present: S1 & S2 Extremities: No edema - Gastrointestinal General gastrointestinal: Present: soft, non-tender Rectal Exam: deferred - Genitourinary Male genitourinary: deferred - Integumentary Integumentary: clear - Neurologic Neurologic: no focal deficits, moves all extremities - Psychiatric Psychiatric: appropriate mood/affect - Labs CBC & Chem 7: 09/06/21 03:04 09/09/21 04:26 Labs: Abnormal lab results 09/08/21 09/09/21 Range/Units 10:40 04:26 Potassium 3.2 L 3.4 L (3.6-5.0) mmol/L Creatinine 0.6 L 0.5 L (0.8-1.3) mg/dL Glucose 130 H 107 H (75-100) mg/dL Calcium 7.8 L (8.4-10.2) mg/dL Total Protein 5.9 L 5.8 L (6.3-8.2) g/dL Albumin 2.9 L 2.9 L (3.9-5) g/dL
[2021-09-09 15:16] LABS: C-Reactive Protein 0.8 mg/dL (0.00-1.30)
--- NOTE | 2021-09-09 16:08 | Consultation ---
History of Present Illness - Reason for Consult Consult date: 09/09/21 COVID-19 Requesting physician: JUAN ALEXANDER - History of Present Illness The patient is a 61-year-old male with hypertension, asthma, tobacco use was admitted to the hospital with worsening shortness of breath, cough along with body aches. Also had some diarrhea. Upon evaluation in the ER, noted to be hypoxic on room air, chest x-ray revealed bilateral pneumonia. Patient tested positive for COVID-19. He is unvaccinated. WBC was normal, D-dimer 545, CTA negative for pulmonary embolism. Initial CRP was 9.9. Procalcitonin 0.06. Has been receiving steroids and remdesivir. Gradually improving. No fever. Review of Systems: reviewed in the chart, unable to obtain, minimize risk of transmission Past History Past Medical History: hypertension, other (See HPI) Past Surgical History: Other (Orchiectomy) Social history: single, smoking, alcohol abuse Family history: hypertension Medications and Allergies Allergies Allergy/AdvReac Type Severity Reaction Status Date / Time Penicillins Allergy Unknown Unknown Verified 09/05/21 18:31 Home Medications Medication Instructions Recorded Confirmed Last Taken Type Permethrin 5% [Acticin 5% CREAM] 1 applicatio TP ONCE #1 tube 12/07/16 09/09/21 Unknown Rx Aspirin [Aspirin BABY CHEW TAB] 81 mg PO QDAY #30 tab.chew 12/20/17 09/09/21 Unknown Rx Desonide [Desonide 0.05%] 1 applicatio TP BID #1 tube 12/20/17 09/09/21 Unknown Rx Furosemide [Lasix] 20 mg PO QDAY #30 tablet 12/20/17 09/09/21 Unknown Rx Sulfamethoxazole/Trimethoprim 1 each PO BID #20 tablet 12/20/17 09/09/21 Unknown Rx [Bactrim DS TAB] Active Meds: Active Medications Acetaminophen (Acetaminophen 325 Mg Tab) 650 mg PO Q4H PRN PRN Reason: Pain MILD(1-3)/Fever >100.5/WELDON Albuterol (Albuterol 2.5 Mg/3 Ml Nebu) 2.5 mg IH Q4HRT PRN PRN Reason: Shortness Of Breath Last Admin: 09/06/21 04:18 Dose: 2.5 mg Ascorbic Acid (Ascorbic Acid 500 Mg Tab) 500 mg PO BID JOSÉ MIGUEL Last Admin: 09/09/21 11:00 Dose: 500 mg Aspirin (Aspirin 81 Mg Tab Chew) 81 mg PO QDAY [facility] Last Admin: 09/09/21 11:00 Dose: 81 mg Cholecalciferol (Cholecalciferol (Vit D3) 1000 Unit (25 Mcg) Tab) 1,000 unit PO QDAY [facility] Last Admin: 09/09/21 11:00 Dose: 1,000 unit Dexamethasone (Dexamethasone 4 Mg Tab) 8 mg PO DAILY [facility] Stop: 09/15/21 10:01 Last Admin: 09/09/21 11:00 Dose: 8 mg Guaifenesin (Guaifenesin Dm 200/20 Mg Oral Liqd 10 Ml) 20 ml PO Q4H PRN PRN Reason: Cough Heparin Sodium (Porcine) (Heparin 5,000 Unit/1 Ml Vial) 5,000 unit SUB-Q Q12HR [facility] Last Admin: 09/09/21 10:00 Dose: 5,000 unit Hydromorphone HCl (Hydromorphone 1 Mg/1 Ml Inj) 0.5 mg IV Q23H PRN PRN Reason: Pain , Severe (7-10) REMDESIVIR 100 mg/ Sodium (Chloride) 250 mls @ 500 mls/hr IV Q24HR@2100 [facility] Stop: 09/11/21 21:29 Last Admin: 09/08/21 21:51 Dose: 500 mls/hr Ondansetron HCl (Ondansetron 4 Mg/2 Ml Inj) 4 mg IV Q8H PRN PRN Reason: Nausea And Vomiting Oxycodone/Acetaminophen (Oxycodone /Acetaminophen 5-325mg Tab) 1 tab PO Q16H PRN PRN Reason: Pain, Moderate (4-6) Sodium Chloride (Sodium Chloride 0.9% 10 Ml Flush Syringe) 10 ml IV BID [facility] Last Admin: 09/09/21 10:00 Dose: 10 ml Sodium Chloride (Sodium Chloride 0.9% 10 Ml Flush Syringe) 10 ml IV PRN PRN PRN Reason: LINE FLUSH Sodium Chloride (Sodium Chloride 0.9% 50 Ml Ivpb) 50 ml IV Q24HR@2100 [facility] Stop: 09/11/21 21:01 Last Admin: 09/08/21 21:51 Dose: 50 ml Zinc Sulfate (Zinc Sulfate 220 Mg Cap) 220 mg PO BID [facility] Last Admin: 09/09/21 11:00 Dose: 220 mg Physical Examination - Physical Exam Narrative exam: Physical Exam (reviewed in chart to minimize risk of transmission) Constitutional: deferred Head, Ears, Nose: deferred Eyes: deferred Neck: deferred Oral: deferred Cardiovascular: deferred Respiratory: deferred GI: deferred Musculoskeletal: deferred Skin: deferred Hem/Lymphatic: deferred Psych: deferred Neurological: deferred - Constitutional Vitals: Vital Signs Temp Pulse Resp BP Pulse Ox 97.7 F 84 20 126/77 93 09/09/21 12:00 09/09/21 12:00 09/09/21 12:00 09/09/21 12:00 09/09/21 12:00 Temperature -Last 24 Hours Temperature 97.7 F Temperature 97.7 F Temperature 98.0 F Temperature 97.7 F Results - Labs CBC & Chem 7: 09/06/21 03:04 09/09/21 04:26 Labs: Abnormal lab results 09/09/21 09/09/21 Range/Units 04:26 13:42 Potassium 3.4 L (3.6-5.0) mmol/L Creatinine 0.5 L (0.8-1.3) mg/dL Glucose 107 H (75-100) mg/dL Calcium 7.8 L (8.4-10.2) mg/dL Lactate Dehydrogenase 213 H (91-180) units/L Total Protein 5.8 L (6.3-8.2) g/dL Albumin 2.9 L (3.9-5) g/dL - Imaging and Cardiology Chest x-ray: report reviewed, image reviewed (b/l atypical pneumonia) Assessment and Plan Cultures: SARS CoV2 PCR: Positive A/P: 61-year-old male admitted with: #Bilateral pneumonia: Secondary to COVID-19 #Acute hypoxic respiratory failure: Improving #Tobacco abuse Recs: Complete IV/PO Dexamethasone x 10 days Continue Remdesivir, given improvement in hypoxia, get ambulatory saturations, discharge planning. Does not need to remain inpatient to complete entire Remdesivir course procalcitonin is low, abx not needed Angela Samuels MD, FACP, [facility] O: [phone] F: [phone]
[2021-09-09] MEDS: SODIUM CHLORIDE 0.9% 50 ML IVPB IV SCH (22:37)
[2021-09-09] MEDS: REMDESIVIR 100 MG in SODIUM CHLORIDE 0.9% 250ML 250 ML IV SCH (22:37)
[2021-09-10] MEDS: ZINC SULFATE 220 MG CAP PO SCH ×2 (09:14→22:22)
[2021-09-10] MEDS: HEPARIN 5,000 UNIT/1 ML VIAL SUB-Q SCH ×2 (09:15→22:23)
[2021-09-10] MEDS: ASCORBIC ACID 500 MG TAB PO SCH ×2 (09:15→22:23)
[2021-09-10] MEDS: ASPIRIN 81 MG TAB CHEW PO SCH (09:15)
[2021-09-10] MEDS: CHOLECALCIFEROL (VIT D3) 1000 UNIT (25 mcg) TAB PO SCH (09:15)
[2021-09-10] MEDS: DEXAMETHASONE 4 MG TAB PO SCH (09:15)
[2021-09-10 10:54] LABS: Alanine Aminotransferase 17 units/L (7-56); Albumin 2.9 g/dL (3.9-5); BUN/Creatinine Ratio 23; Blood Urea Nitrogen 14 mg/dL (9-20); Hemolysis Index 6
[2021-09-10] MEDS ORDERED: POTASSIUM CHLORIDE ER 20 MEQ TAB PO ONE (12:40)
[2021-09-10] MEDS: POTASSIUM CHLORIDE 10 MEQ 10 MEQ/100 ML BAG IV SCH ×3 (13:47→15:00)
--- NOTE | 2021-09-10 14:27 | Progress Note ---
Assessment and Plan Cultures: SARS CoV2 PCR: Positive A/P: 61-year-old male admitted with: #Bilateral pneumonia: Secondary to COVID-19 #Acute hypoxic respiratory failure: Improving but requiring NC @ 3L/min. #Tobacco abuse Recs: Complete IV/PO Dexamethasone x 10 days Continue Remdesivir x 5 days while inpatient procalcitonin is low, abx not needed recheck markers in AM Angela Samuels MD, FACP, [facility] O: [phone] F: [phone] Subjective Date of service: 09/10/21 Interval history: No fever. Remains on oxygen by NC at 3 L/min. Objective - Exam Narrative Exam: Physical Exam (reviewed in chart to minimize risk of transmission) Constitutional: deferred Head, Ears, Nose: deferred Eyes: deferred Neck: deferred Oral: deferred Cardiovascular: deferred Respiratory: deferred GI: deferred Musculoskeletal: deferred Skin: deferred Hem/Lymphatic: deferred Psych: deferred Neurological: deferred - Constitutional Vitals: Vital Signs Temp Pulse Resp BP Pulse Ox 98.2 F 52 L 18 142/87 96 09/10/21 06:09 09/10/21 06:09 09/10/21 06:09 09/10/21 06:09 09/10/21 09:15 Temperature -Last 24 Hours Temperature 98.2 F Temperature 98.1 F Temperature 97.5 F - Labs CBC & Chem 7: 09/06/21 03:04 09/10/21 09:57 Labs: Abnormal lab results 09/09/21 09/10/21 Range/Units 13:42 09:57 Potassium 2.8 L* (3.6-5.0) mmol/L Creatinine 0.6 L (0.8-1.3) mg/dL Glucose 189 H (75-100) mg/dL Calcium 8.0 L (8.4-10.2) mg/dL Lactate Dehydrogenase 213 H (91-180) units/L Total Protein 5.4 L (6.3-8.2) g/dL Albumin 2.9 L (3.9-5) g/dL
[2021-09-10] MEDS ORDERED: POTASSIUM CHLORIDE ER 20 MEQ TAB PO NR (15:30)
--- NOTE | 2021-09-10 16:39 | Progress Note ---
Assessment and Plan Assessment and plan: #Acute hypoxic respiratory failure #COVID-19 pneumonia Currently on 3 L nasal cannula. Wean as tolerated. We will perform walk test tomorrow. Continue remdesivir x5 days and steroids x10 days. Ordering incentive spirometry and educating patient on how to use it. Organic Extractions Technician ed about the importance of ambulation and sitting upright. Patient expresses understanding. Continue to monitor. #Hypertension - current medications: Continue to hold antihypertensives until SBP >150 - SBP goal <160 and DBP goal <90 while inpatient - continue to monitor #Hypokalemia Repleted. Patient refusing IV resuscitation but open to taking p.o. Continue to monitor #Tobacco dependence #Tobacco/Smoking cessation counseling - Counseled patient about the importance of smoking cessation and the possible sequelae as a result of continued tobacco consumption. The patient expresses understanding. -Time: +15 mins #Advanced care planning -Disease education conducted, care plan discussed, diagnoses discussed, prognosis discussed, and patient acknowledges understanding with care plan -Time: +30 min #Discharge planning - Patient is pending resolution of acute hypoxic respiratory failure as patient is homeless. - Case management has been made aware. - Discharge is tentatively resolution of acute hypoxic respiratory failure. Disposition Plan: Continue medical management Total Time Spent with Patient (Minutes): 45 minutes History Interval history: No acute events over night. The patient denies fevers, chills, nausea, vomiting, abdominal pain, chest pain/pressure, shortness of breath, urinary symptoms, weakness, or confusion. Hospitalist Physical - Constitutional Vitals: Temp Pulse Resp BP Pulse Ox 98.2 F 52 L 18 142/87 96 09/10/21 06:09 09/10/21 06:09 09/10/21 06:09 09/10/21 06:09 09/10/21 09:15 General appearance: Present: no acute distress, well-nourished - EENT Eyes: Present: PERRL, EOM intact ENT: hearing intact, clear oral mucosa, edentulous - Neck Neck: Present: supple, normal ROM - Respiratory Respiratory effort: normal Respiratory: bilateral: diminished (On 3 L nasal cannula) - Cardiovascular Rhythm: regular Heart Sounds: Present: S1 & S2 - Extremities Extremities: no ischemia, pulses intact, pulses symmetrical, No edema, normal temperature, normal color Peripheral Pulses: within normal limits - Abdominal General gastrointestinal: soft, non-tender, non-distended, normal bowel sounds - Integumentary Integumentary: Present: clear, warm, dry - Psychiatric Psychiatric: appropriate mood/affect, cooperative - Neurologic Neurologic: CNII-XII intact - Allied Health Allied health notes reviewed: nursing Results - Labs CBC & Chem 7: 09/06/21 03:04 09/10/21 09:57 Labs: Laboratory Last Values WBC 8.4 K/mm3 (4.5-11.0) 09/06/21 03:04 RBC 3.77 M/mm3 (3.65-5.03) 09/06/21 03:04 Hgb 12.3 gm/dl (11.8-15.2) 09/06/21 03:04 Hct 35.9 % (35.5-45.6) 09/06/21 03:04 MCV 95 fl (84-94) H 09/06/21 03:04 MCH 33 pg (28-32) H 09/06/21 03:04 MCHC 34 % (32-34) 09/06/21 03:04 RDW 15.4 % (13.2-15.2) H 09/06/21 03:04 Plt Count 301 K/mm3 (140-440) 09/06/21 03:04 Lymph % (Auto) 18.5 % (13.4-35.0) 09/05/21 19:11 Sac % (Auto) 10.7 % (0.0-7.3) H 09/05/21 19:11 Eos % (Auto) 0.1 % (0.0-4.3) 09/05/21 19:11 Baso % (Auto) 0.2 % (0.0-1.8) 09/05/21 19:11 Lymph # (Auto) 1.4 K/mm3 (1.2-5.4) 09/05/21 19:11 Sac # (Auto) 0.8 K/mm3 (0.0-0.8) 09/05/21 19:11 Eos # (Auto) 0.0 K/mm3 (0.0-0.4) 09/05/21 19:11 Baso # (Auto) 0.0 K/mm3 (0.0-0.1) 09/05/21 19:11 Add Manual Diff Complete 09/06/21 03:04 Total Counted 100 09/06/21 03:04 Seg Neutrophils % Reconstructive Dentist 09/06/21 03:04 Seg Neuts % (Manual) 96.0 % (40.0-70.0) H 09/06/21 03:04 Band Neutrophils % 0 % 09/06/21 03:04 Lymphocytes % (Manual) 3.0 % (13.4-35.0) L 09/06/21 03:04 Reactive Lymphs % (Man) 0 % 09/06/21 03:04 Monocytes % (Manual) 1.0 % (0.0-7.3) 09/06/21 03:04 Eosinophils % (Manual) 0 % (0.0-4.3) 09/06/21 03:04 Basophils % (Manual) 0 % (0.0-1.8) 09/06/21 03:04 Metamyelocytes % 0 % 09/06/21 03:04 Myelocytes % 0 % 09/06/21 03:04 Promyelocytes % 0 % 09/06/21 03:04 Blast Cells % 0 % 09/06/21 03:04 Nucleated RBC % Not Reportable 09/06/21 03:04 Seg Neutrophils # 5.2 K/mm3 (1.8-7.7) 09/05/21 19:11 Seg Neutrophils # Man 8.1 K/mm3 (1.8-7.7) H 09/06/21 03:04 Band Neutrophils # 0.0 K/mm3 09/06/21 03:04 Lymphocytes # (Manual) 0.3 K/mm3 (1.2-5.4) L 09/06/21 03:04 Abs React Lymphs (Man) 0.0 K/mm3 09/06/21 03:04 Monocytes # (Manual) 0.1 K/mm3 (0.0-0.8) 09/06/21 03:04 Eosinophils # (Manual) 0.0 K/mm3 (0.0-0.4) 09/06/21 03:04 Basophils # (Manual) 0.0 K/mm3 (0.0-0.1) 09/06/21 03:04 Metamyelocytes # 0.0 K/mm3 09/06/21 03:04 Myelocytes # 0.0 K/mm3 09/06/21 03:04 Promyelocytes # 0.0 K/mm3 09/06/21 03:04 Blast Cells # 0.0 K/mm3 09/06/21 03:04 WBC Morphology Not Reportable 09/06/21 03:04 Hypersegmented Neuts Not Reportable 09/06/21 03:04 Hyposegmented Neuts Not Reportable 09/06/21 03:04 Hypogranular Neuts Not Reportable 09/06/21 03:04 Smudge Cells Not Reportable 09/06/21 03:04 Toxic Granulation Not Reportable 09/06/21 03:04 Toxic Vacuolation Not Reportable 09/06/21 03:04 Dohle Bodies Not Reportable 09/06/21 03:04 Pelger-Huet Anomaly Not Reportable 09/06/21 03:04 Malick Rods Not Reportable 09/06/21 03:04 Platelet Estimate Consistent w auto 09/06/21 03:04 Clumped Platelets Not Reportable 09/06/21 03:04 Plt Clumps, EDTA Not Reportable 09/06/21 03:04 Large Platelets Not Reportable 09/06/21 03:04 Giant Platelets Not Reportable 09/06/21 03:04 Platelet Satelliting Not Reportable 09/06/21 03:04 Plt Morphology Comment Not Reportable 09/06/21 03:04 RBC Morphology Normal 09/06/21 03:04 Dimorphic RBCs Not Reportable 09/06/21 03:04 Polychromasia Not Reportable 09/06/21 03:04 Hypochromasia Not Reportable 09/06/21 03:04 Poikilocytosis Not Reportable 09/06/21 03:04 Anisocytosis Not Reportable 09/06/21 03:04 Microcytosis Not Reportable 09/06/21 03:04 Macrocytosis Not Reportable 09/06/21 03:04 Spherocytes Not Reportable 09/06/21 03:04 Pappenheimer Bodies Not Reportable 09/06/21 03:04 Sickle Cells Not Reportable 09/06/21 03:04 Target Cells Not Reportable 09/06/21 03:04 Tear Drop Cells Not Reportable 09/06/21 03:04 Ovalocytes Not Reportable 09/06/21 03:04 Helmet Cells Not Reportable 09/06/21 03:04 [place] Bodies Not Reportable 09/06/21 03:04 [place] Rings Not Reportable 09/06/21 03:04 Aashish Cells Not Reportable 09/06/21 03:04 Bite Cells Not Reportable 09/06/21 03:04 Crenated Cell Not Reportable 09/06/21 03:04 Elliptocytes Not Reportable 09/06/21 03:04 Acanthocytes (Spur) Not Reportable 09/06/21 03:04 Rouleaux Not Reportable 09/06/21 03:04 Hemoglobin C Crystals Not Reportable 09/06/21 03:04 Schistocytes Not Reportable 09/06/21 03:04 Malaria parasites Not Reportable 09/06/21 03:04 [place] Bodies Not Reportable 09/06/21 03:04 Hem Pathologist Commnt No 09/06/21 03:04 D-Dimer 545.84 ng/mlDDU (0-234) H 09/05/21 19:50 Sodium 140 mmol/L (137-145) 09/10/21 09:57 Potassium 2.8 mmol/L (3.6-5.0) L* 09/10/21 09:57 Chloride 103.8 mmol/L (98-107) 09/10/21 09:57 Carbon Dioxide 23 mmol/L (22-30) 09/10/21 09:57 Anion Gap 16 mmol/L 09/10/21 09:57 BUN 14 mg/dL (9-20) 09/10/21 09:57 Creatinine 0.6 mg/dL (0.8-1.3) L 09/10/21 09:57 Estimated GFR > 60 ml/min 09/10/21 09:57 BUN/Creatinine Ratio 23 % 09/10/21 09:57 Glucose 189 mg/dL (75-100) H 09/10/21 09:57 Calcium 8.0 mg/dL (8.4-10.2) L 09/10/21 09:57 Ferritin 672.7 ng/mL (30.0-300.0) H 09/05/21 19:50 Total Bilirubin 0.30 mg/dL (0.1-1.2) 09/10/21 09:57 AST 16 units/L (5-40) 09/10/21 09:57 ALT 17 units/L (7-56) 09/10/21 09:57 Alkaline Phosphatase 48 units/L (35-129) 09/10/21 09:57 Lactate Dehydrogenase 213 units/L (91-180) H 09/09/21 13:42 C-Reactive Protein 0.80 mg/dL (0.00-1.30) 09/09/21 13:42 Total Protein 5.4 g/dL (6.3-8.2) L 09/10/21 09:57 Albumin 2.9 g/dL (3.9-5) L 09/10/21 09:57 Albumin/Globulin Ratio 1.2 % 09/10/21 09:57 Procalcitonin 0.06 ng/mL (<0.15) 09/09/21 13:42 Coronavirus (PCR) Positive (Negative) A 09/06/21 Unknown Microbiology: Microbiology 09/05/21 20:23 Peripheral/Venous Blood Culture - Preliminary NO GROWTH AFTER 4 DAYS 09/05/21 20:34 Peripheral/Venous Blood Culture - Preliminary NO GROWTH AFTER 4 DAYS Saez/IV: Voiding Method Toilet Active Medications - Current Medications Current Medications: Generic Name Dose Route Start Last Admin Trade Name Freq PRN Reason Stop Dose Admin Acetaminophen 650 mg 09/05/21 19:47 Acetaminophen 325 Mg Tab PO Q4H PRN Pain MILD(1-3)/Fever >100.5/WELDON Albuterol 2.5 mg 09/05/21 19:47 09/06/21 04:18 Albuterol 2.5 Mg/3 Ml Nebu IH 2.5 mg Q4HRT PRN Administration Shortness Of Breath Ascorbic Acid 500 mg 09/05/21 22:00 09/10/21 09:15 Ascorbic Acid 500 Mg Tab PO 500 mg BID JOSÉ MIGUEL Administration Aspirin 81 mg 09/06/21 10:00 09/10/21 09:15 Aspirin 81 Mg Tab Chew PO 81 mg QDAY JOSÉ MIGUEL Administration Cholecalciferol 1,000 unit 09/06/21 10:00 09/10/21 09:15 Cholecalciferol (Vit D3) 1000 Unit (25 Mcg) Tab PO 1,000 unit QDAY JOSÉ MIGUEL Administration Dexamethasone 8 mg 09/06/21 10:00 09/10/21 09:15 Dexamethasone 4 Mg Tab PO 09/15/21 10:01 8 mg DAILY JOSÉ MIGUEL Administration Guaifenesin 20 ml 09/08/21 11:55 Guaifenesin Dm 200/20 Mg Oral Liqd 10 Ml PO Q4H PRN Cough Heparin Sodium (Porcine) 5,000 unit 09/05/21 22:00 09/10/21 09:15 Heparin 5,000 Unit/1 Ml Vial SUB-Q 5,000 unit Q12HR JOSÉ MIGUEL Administration Hydromorphone HCl 0.5 mg 09/05/21 19:47 Hydromorphone 1 Mg/1 Ml Inj IV Q23H PRN Pain , Severe (7-10) REMDESIVIR 100 mg/ Sodium 250 mls @ 500 mls/hr 09/08/21 21:00 09/09/21 22:37 Chloride IV 09/11/21 21:29 500 mls/hr Q24HR@2100 JOSÉ MIGUEL Administration Ondansetron HCl 4 mg 09/05/21 19:47 Ondansetron 4 Mg/2 Ml Inj IV Q8H PRN Nausea And Vomiting Oxycodone/Acetaminophen 1 tab 09/05/21 19:47 Oxycodone /Acetaminophen 5-325mg Tab PO Q16H PRN Pain, Moderate (4-6) Potassium Chloride 40 meq 09/10/21 15:30 09/10/21 15:32 Potassium Chloride Er 20 Meq Tab PO 09/10/21 17:30 40 meq ONCE NR Administration Sodium Chloride 10 ml 09/05/21 22:00 09/10/21 09:14 Sodium Chloride 0.9% 10 Ml Flush Syringe IV 10 ml BID JOSÉ MIGUEL Administration Sodium Chloride 10 ml 09/05/21 19:47 Sodium Chloride 0.9% 10 Ml Flush Syringe IV PRN PRN LINE FLUSH Sodium Chloride 50 ml 09/08/21 21:00 09/09/21 22:37 Sodium Chloride 0.9% 50 Ml Ivpb IV 09/11/21 21:01 50 ml Q24HR@2100 JOSÉ MIGUEL Administration Zinc Sulfate 220 mg 09/05/21 22:00 09/10/21 09:14 Zinc Sulfate 220 Mg Cap PO 220 mg BID JOSÉ MIGUEL Administration Nutrition/Malnutrition Assess - Dietary Evaluation Nutrition/Malnutrition Findings: Nutrition Notes Start: 09/07/21 10:58 Freq: Status: Active Protocol: Document 09/07/21 10:58 CW (Rec: 09/07/21 11:08 CW [id number]) Nutrition Notes Need for Assessment generated from: MST Initial or Follow up Assessment Current Diagnosis Hypertension,Respiratory Failure Other Pertinent Diagnosis Covid 19, pneu Current Diet Cardiac Labs/Tests BG 149 Pertinent Medications Decadron K dur Height 5 ft 11 in Weight 81.647 kg [place] Body Weight (kg) 78.18 BMI 25.1 Weight Status Appropriate Subjective/Other Information Screen for MST. No intake available in EHR. Pt unavailable by phone at this time. RN unavailable at this time. Will monitor intakes. Burn Absent Trauma Absent Minimum of two criteria No physical signs of malnutrition Is patient on ventilator? No Is Patient Ambulatory and/or Out of Bed Yes REE-([facility]-ambulatory/OOB) [ [id number] [id number]] Calculation Used for Recommendations [facility] Nutrition Intervention Change Diet Order: Continue Current Diet as ordered Goal #1 Meet at least 75% of EER via PO Anticipated Discharge Needs: Cardiac Diet Follow-Up By: 09/11/21 Additional Comments F/U for stable intakes
[2021-09-10] MEDS: REMDESIVIR 100 MG in SODIUM CHLORIDE 0.9% 250ML 250 ML IV SCH (22:21)
[2021-09-10] MEDS: SODIUM CHLORIDE 0.9% 50 ML IVPB IV SCH (22:22)
[2021-09-11 05:25] LABS: Blood Urea Nitrogen 12 mg/dL (9-20); Calcium 8.1 mg/dL (8.4-10.2); Hemolysis Index 6
[2021-09-11 05:29] LABS: BUN/Creatinine Ratio 24
[2021-09-11] MEDS: DEXAMETHASONE 4 MG TAB PO SCH (11:48)
[2021-09-11] MEDS: ASCORBIC ACID 500 MG TAB PO SCH ×2 (11:49→22:07)
[2021-09-11] MEDS: ZINC SULFATE 220 MG CAP PO SCH ×2 (11:49→22:07)
[2021-09-11] MEDS: CHOLECALCIFEROL (VIT D3) 1000 UNIT (25 mcg) TAB PO SCH (11:49)
[2021-09-11] MEDS: CALCIUM CARBONATE 1250 MG TAB PO SCH ×2 (11:49→22:07)
[2021-09-11] MEDS: ASPIRIN 81 MG TAB CHEW PO SCH (11:49)
[2021-09-11] MEDS: HEPARIN 5,000 UNIT/1 ML VIAL SUB-Q SCH ×2 (11:50→22:05)
--- NOTE | 2021-09-11 14:09 | Progress Note ---
Assessment and Plan Cultures: SARS CoV2 PCR: Positive 09/05/2021 blood culture: No growth A/P: 61-year-old male admitted with: #Bilateral pneumonia: Secondary to COVID-19 #Acute hypoxic respiratory failure: Improving but requiring NC @ 3L/min. #Tobacco abuse Recs: Complete IV/PO Dexamethasone x 10 days Continue Remdesivir x 5 days if he remains inpatient D-dimer 675, CRP 0.4, ferritin 274 discharge planning, ambulatory sats Will sign off. Angela Samuels MD, FACP, [facility] O: [phone] F: [phone] Subjective Date of service: 09/11/21 Interval history: No fever. Stable on oxygen. Objective - Exam Narrative Exam: Physical Exam (reviewed in chart to minimize risk of transmission) Constitutional: deferred Head, Ears, Nose: deferred Eyes: deferred Neck: deferred Oral: deferred Cardiovascular: deferred Respiratory: deferred GI: deferred Musculoskeletal: deferred Skin: deferred Hem/Lymphatic: deferred Psych: deferred Neurological: deferred - Constitutional Vitals: Vital Signs Temp Pulse Resp BP Pulse Ox 97.8 F 53 L 19 124/68 95 09/11/21 12:01 09/11/21 12:01 09/11/21 12:01 09/11/21 12:01 09/11/21 12:01 Temperature -Last 24 Hours Temperature 97.8 F Temperature 98.1 F Temperature 98.2 F Temperature 98.6 F - Labs CBC & Chem 7: 09/06/21 03:04 09/11/21 04:31 Labs: Abnormal lab results 09/11/21 09/11/21 Range/Units 04:31 04:31 D-Dimer 675.79 H (0-234) ng/mlDDU Creatinine 0.5 L (0.8-1.3) mg/dL Glucose 119 H (75-100) mg/dL Calcium 8.1 L (8.4-10.2) mg/dL
--- NOTE | 2021-09-11 19:15 | Progress Note ---
Assessment and Plan Assessment and plan: #Acute hypoxic respiratory failure #COVID-19 pneumonia Currently on 3 L nasal cannula. Wean as tolerated. Pending walk test. Continue remdesivir x5 days and steroids x10 days. Ordering incentive spirometry and educating patient on how to use it. Counseled about the importance of ambulation and sitting upright. Patient expresses understanding. Continue to monitor. #Hypertension - current medications: Continue to hold antihypertensives until SBP >150 - SBP goal <160 and DBP goal <90 while inpatient - continue to monitor #Hypokalemia-resolved Repleted. Patient refusing IV resuscitation but open to taking p.o. Continue to monitor #Tobacco dependence #Tobacco/Smoking cessation counseling - Counseled patient about the importance of smoking cessation and the possible sequelae as a result of continued tobacco consumption. The patient expresses understanding. -Time: +15 mins #Advanced care planning -Disease education conducted, care plan discussed, diagnoses discussed, prognosis discussed, and patient acknowledges understanding with care plan -Time: +30 min #Discharge planning - Patient is pending resolution of acute hypoxic respiratory failure as patient is homeless. - Case management has been made aware. - Discharge is tentatively resolution of acute hypoxic respiratory failure. Disposition Plan: Pending discharge tomorrow Total Time Spent with Patient (Minutes): 45 minutes History Interval history: No acute events overnight. Hospitalist Physical - Constitutional Vitals: Temp Pulse Resp BP Pulse Ox 98.0 F 57 L 18 124/70 96 09/11/21 16:26 09/11/21 16:26 09/11/21 16:26 09/11/21 16:26 09/11/21 16:26 General appearance: Present: no acute distress, well-nourished - EENT Eyes: Present: PERRL, EOM intact ENT: hearing intact, clear oral mucosa, edentulous - Neck Neck: Present: supple, normal ROM - Respiratory Respiratory effort: normal Respiratory: bilateral: diminished (on 2L NC) - Cardiovascular Rhythm: regular Heart Sounds: Present: S1 & S2 - Extremities Extremities: no ischemia, pulses intact, pulses symmetrical, No edema, normal temperature, normal color, Full ROM Peripheral Pulses: within normal limits - Abdominal General gastrointestinal: soft, non-tender, non-distended, normal bowel sounds - Integumentary Integumentary: Present: clear, warm, dry - Psychiatric Psychiatric: appropriate mood/affect, cooperative - Neurologic Neurologic: CNII-XII intact, moves all extremities - Allied Health Allied health notes reviewed: nursing Results - Labs CBC & Chem 7: 09/06/21 03:04 09/11/21 04:31 Labs: Laboratory Last Values WBC 8.4 K/mm3 (4.5-11.0) 09/06/21 03:04 RBC 3.77 M/mm3 (3.65-5.03) 09/06/21 03:04 Hgb 12.3 gm/dl (11.8-15.2) 09/06/21 03:04 Hct 35.9 % (35.5-45.6) 09/06/21 03:04 MCV 95 fl (84-94) H 09/06/21 03:04 MCH 33 pg (28-32) H 09/06/21 03:04 MCHC 34 % (32-34) 09/06/21 03:04 RDW 15.4 % (13.2-15.2) H 09/06/21 03:04 Plt Count 301 K/mm3 (140-440) 09/06/21 03:04 Lymph % (Auto) 18.5 % (13.4-35.0) 09/05/21 19:11 [place] % (Auto) 10.7 % (0.0-7.3) H 09/05/21 19:11 Eos % (Auto) 0.1 % (0.0-4.3) 09/05/21 19:11 Baso % (Auto) 0.2 % (0.0-1.8) 09/05/21 19:11 Lymph # (Auto) 1.4 K/mm3 (1.2-5.4) 09/05/21 19:11 [place] # (Auto) 0.8 K/mm3 (0.0-0.8) 09/05/21 19:11 Eos # (Auto) 0.0 K/mm3 (0.0-0.4) 09/05/21 19:11 Baso # (Auto) 0.0 K/mm3 (0.0-0.1) 09/05/21 19:11 Add Manual Diff Complete 09/06/21 03:04 Total Counted 100 09/06/21 03:04 Seg Neutrophils % Candy Polisher 09/06/21 03:04 Seg Neuts % (Manual) 96.0 % (40.0-70.0) H 09/06/21 03:04 Band Neutrophils % 0 % 09/06/21 03:04 Lymphocytes % (Manual) 3.0 % (13.4-35.0) L 09/06/21 03:04 Reactive Lymphs % (Man) 0 % 09/06/21 03:04 Monocytes % (Manual) 1.0 % (0.0-7.3) 09/06/21 03:04 Eosinophils % (Manual) 0 % (0.0-4.3) 09/06/21 03:04 Basophils % (Manual) 0 % (0.0-1.8) 09/06/21 03:04 Metamyelocytes % 0 % 09/06/21 03:04 Myelocytes % 0 % 09/06/21 03:04 Promyelocytes % 0 % 09/06/21 03:04 Blast Cells % 0 % 09/06/21 03:04 Nucleated RBC % Not Reportable 09/06/21 03:04 Seg Neutrophils # 5.2 K/mm3 (1.8-7.7) 09/05/21 19:11 Seg Neutrophils # Man 8.1 K/mm3 (1.8-7.7) H 09/06/21 03:04 Band Neutrophils # 0.0 K/mm3 09/06/21 03:04 Lymphocytes # (Manual) 0.3 K/mm3 (1.2-5.4) L 09/06/21 03:04 Abs React Lymphs (Man) 0.0 K/mm3 09/06/21 03:04 Monocytes # (Manual) 0.1 K/mm3 (0.0-0.8) 09/06/21 03:04 Eosinophils # (Manual) 0.0 K/mm3 (0.0-0.4) 09/06/21 03:04 Basophils # (Manual) 0.0 K/mm3 (0.0-0.1) 09/06/21 03:04 Metamyelocytes # 0.0 K/mm3 09/06/21 03:04 Myelocytes # 0.0 K/mm3 09/06/21 03:04 Promyelocytes # 0.0 K/mm3 09/06/21 03:04 Blast Cells # 0.0 K/mm3 09/06/21 03:04 WBC Morphology Not Reportable 09/06/21 03:04 Hypersegmented Neuts Not Reportable 09/06/21 03:04 Hyposegmented Neuts Not Reportable 09/06/21 03:04 Hypogranular Neuts Not Reportable 09/06/21 03:04 Smudge Cells Not Reportable 09/06/21 03:04 Toxic Granulation Not Reportable 09/06/21 03:04 Toxic Vacuolation Not Reportable 09/06/21 03:04 Dohle Bodies Not Reportable 09/06/21 03:04 Pelger-Huet Anomaly Not Reportable 09/06/21 03:04 Malick Rods Not Reportable 09/06/21 03:04 Platelet Estimate Consistent w auto 09/06/21 03:04 Clumped Platelets Not Reportable 09/06/21 03:04 Plt Clumps, EDTA Not Reportable 09/06/21 03:04 Large Platelets Not Reportable 09/06/21 03:04 Giant Platelets Not Reportable 09/06/21 03:04 Platelet Satelliting Not Reportable 09/06/21 03:04 Plt Morphology Comment Not Reportable 09/06/21 03:04 RBC Morphology Normal 09/06/21 03:04 Dimorphic RBCs Not Reportable 09/06/21 03:04 Polychromasia Not Reportable 09/06/21 03:04 Hypochromasia Not Reportable 09/06/21 03:04 Poikilocytosis Not Reportable 09/06/21 03:04 Anisocytosis Not Reportable 09/06/21 03:04 Microcytosis Not Reportable 09/06/21 03:04 Macrocytosis Not Reportable 09/06/21 03:04 Spherocytes Not Reportable 09/06/21 03:04 Pappenheimer Bodies Not Reportable 09/06/21 03:04 Sickle Cells Not Reportable 09/06/21 03:04 Target Cells Not Reportable 09/06/21 03:04 Tear Drop Cells Not Reportable 09/06/21 03:04 Ovalocytes Not Reportable 09/06/21 03:04 Helmet Cells Not Reportable 09/06/21 03:04 [place] Bodies Not Reportable 09/06/21 03:04 [place] Rings Not Reportable 09/06/21 03:04 [place] Cells Not Reportable 09/06/21 03:04 Bite Cells Not Reportable 09/06/21 03:04 Crenated Cell Not Reportable 09/06/21 03:04 Elliptocytes Not Reportable 09/06/21 03:04 Acanthocytes (Spur) Not Reportable 09/06/21 03:04 Rouleaux Not Reportable 09/06/21 03:04 Hemoglobin C Crystals Not Reportable 09/06/21 03:04 Schistocytes Not Reportable 09/06/21 03:04 Malaria parasites Not Reportable 09/06/21 03:04 [place] Bodies Not Reportable 09/06/21 03:04 Hem Pathologist Commnt No 09/06/21 03:04 D-Dimer 675.79 ng/mlDDU (0-234) H 09/11/21 04:31 Sodium 141 mmol/L (137-145) 09/11/21 04:31 Potassium 3.7 mmol/L (3.6-5.0) D 09/11/21 04:31 Chloride 106.9 mmol/L (98-107) 09/11/21 04:31 Carbon Dioxide 23 mmol/L (22-30) 09/11/21 04:31 Anion Gap 15 mmol/L 09/11/21 04:31 BUN 12 mg/dL (9-20) 09/11/21 04:31 Creatinine 0.5 mg/dL (0.8-1.3) L 09/11/21 04:31 Estimated GFR > 60 ml/min 09/11/21 04:31 BUN/Creatinine Ratio 24 % 09/11/21 04:31 Glucose 119 mg/dL (75-100) H 09/11/21 04:31 Calcium 8.1 mg/dL (8.4-10.2) L 09/11/21 04:31 Ferritin 274.2 ng/mL (30.0-300.0) 09/11/21 04:31 Total Bilirubin 0.30 mg/dL (0.1-1.2) 09/10/21 09:57 AST 16 units/L (5-40) 09/10/21 09:57 ALT 17 units/L (7-56) 09/10/21 09:57 Alkaline Phosphatase 48 units/L (35-129) 09/10/21 09:57 Lactate Dehydrogenase 213 units/L (91-180) H 09/09/21 13:42 C-Reactive Protein 0.40 mg/dL (0.00-1.30) 09/11/21 04:31 Total Protein 5.4 g/dL (6.3-8.2) L 09/10/21 09:57 Albumin 2.9 g/dL (3.9-5) L 09/10/21 09:57 Albumin/Globulin Ratio 1.2 % 09/10/21 09:57 Procalcitonin 0.06 ng/mL (<0.15) 09/09/21 13:42 Coronavirus (PCR) Positive (Negative) A 09/06/21 Unknown Microbiology: Microbiology 09/05/21 20:34 Peripheral/Venous Blood Culture - Final NO GROWTH AFTER 5 DAYS 09/05/21 20:23 Peripheral/Venous Blood Culture - Final NO GROWTH AFTER 5 DAYS Saez/IV: Voiding Method Toilet Active Medications - Current Medications Current Medications: Generic Name Dose Route Start Last Admin Trade Name Freq PRN Reason Stop Dose Admin Acetaminophen 650 mg 09/05/21 19:47 Acetaminophen 325 Mg Tab PO Q4H PRN Pain MILD(1-3)/Fever >100.5/WELDON Albuterol 2.5 mg 09/05/21 19:47 09/06/21 04:18 Albuterol 2.5 Mg/3 Ml Nebu IH 2.5 mg Q4HRT PRN Administration Shortness Of Breath Ascorbic Acid 500 mg 09/05/21 22:00 09/11/21 11:49 Ascorbic Acid 500 Mg Tab PO 500 mg BID JOSÉ MIGUEL Administration Aspirin 81 mg 09/06/21 10:00 09/11/21 11:49 Aspirin 81 Mg Tab Chew PO 81 mg QDAY JOSÉ MIGUEL Administration Calcium Carbonate/Glycine 1,250 mg 09/11/21 10:00 09/11/21 11:49 Calcium Carbonate 1250 Mg Tab PO 1,250 mg BID JOSÉ MIGUEL Administration Cholecalciferol 1,000 unit 09/06/21 10:00 09/11/21 11:49 Cholecalciferol (Vit D3) 1000 Unit (25 Mcg) Tab PO 1,000 unit QDAY JOSÉ MIGUEL Administration Dexamethasone 8 mg 09/06/21 10:00 09/11/21 11:48 Dexamethasone 4 Mg Tab PO 09/15/21 10:01 8 mg DAILY JOSÉ MIGUEL Administration Guaifenesin 20 ml 09/08/21 11:55 Guaifenesin Dm 200/20 Mg Oral Liqd 10 Ml PO Q4H PRN Cough Heparin Sodium (Porcine) 5,000 unit 09/05/21 22:00 09/11/21 11:50 Heparin 5,000 Unit/1 Ml Vial SUB-Q 5,000 unit Q12HR JOSÉ MIGUEL Administration Hydromorphone HCl 0.5 mg 09/05/21 19:47 Hydromorphone 1 Mg/1 Ml Inj IV Q23H PRN Pain , Severe (7-10) REMDESIVIR 100 mg/ Sodium 250 mls @ 500 mls/hr 09/08/21 21:00 09/10/21 22:21 Chloride IV 09/11/21 21:29 500 mls/hr Q24HR@2100 JOSÉ MIGUEL Administration Ondansetron HCl 4 mg 09/05/21 19:47 Ondansetron 4 Mg/2 Ml Inj IV Q8H PRN Nausea And Vomiting Oxycodone/Acetaminophen 1 tab 09/05/21 19:47 09/11/21 12:12 Oxycodone /Acetaminophen 5-325mg Tab PO 1 tab Q16H PRN Administration Pain, Moderate (4-6) Sodium Chloride 10 ml 09/05/21 22:00 09/11/21 11:50 Sodium Chloride 0.9% 10 Ml Flush Syringe IV 10 ml BID JOSÉ MIGUEL Administration Sodium Chloride 10 ml 09/05/21 19:47 Sodium Chloride 0.9% 10 Ml Flush Syringe IV PRN PRN LINE FLUSH Sodium Chloride 50 ml 09/08/21 21:00 09/10/21 22:22 Sodium Chloride 0.9% 50 Ml Ivpb IV 09/11/21 21:01 50 ml Q24HR@2100 JOSÉ MIGUEL Administration Zinc Sulfate 220 mg 09/05/21 22:00 09/11/21 11:49 Zinc Sulfate 220 Mg Cap PO 220 mg BID JOSÉ MIGUEL Administration Nutrition/Malnutrition Assess - Dietary Evaluation Nutrition/Malnutrition Findings: Nutrition Notes Start: 09/07/21 10:58 Freq: Status: Active Protocol: Document 09/11/21 15:18 TORIN (Rec: 09/11/21 15:27 TORIN [email or web address]) Nutrition Notes Initial or Follow up Brief Note Current Diet Cardiac Diet (since D 09/05). Height 5 ft 11 in Weight 81.3 kg [place] Body Weight (kg) 78.18 BMI 25.0 Weight change and time frame 0.347 Kg body weight change in 4 days reported. Weight Status Appropriate Subjective/Other Information RD consult for routine F/U on risk for malnutrition and Dietary assessment. Pt's PO intake of meals has been Good (100%), according to ADL notes. Pt shows no signs of concern for risk of malnutrition at the time, according to Physical Assessment History notes. Percent of energy/protein needs met: Prescribed Cardiac Diet provides for energy/protein needs (2,230 Kcal/85 g) during LOS. Current % PO Good (75-100%) Minimum of two criteria No Nutrition Intervention Change Diet Order: Continue Cardiac Diet. Revisit per MD consult or patient Sign Off request: Additional Comments Continue monitoring food tolerance, %PO intake of meals , and BM.
[2021-09-11] MEDS: REMDESIVIR 100 MG in SODIUM CHLORIDE 0.9% 250ML 250 ML IV SCH (22:04)
[2021-09-11] MEDS: SODIUM CHLORIDE 0.9% 50 ML IVPB IV SCH (22:05)
[2021-09-12] MEDS: HEPARIN 5,000 UNIT/1 ML VIAL SUB-Q SCH (10:29)
[2021-09-12] MEDS: CHOLECALCIFEROL (VIT D3) 1000 UNIT (25 mcg) TAB PO SCH (10:30)
[2021-09-12] MEDS: DEXAMETHASONE 4 MG TAB PO SCH (10:31)
[2021-09-12] MEDS: CALCIUM CARBONATE 1250 MG TAB PO SCH (10:31)
[2021-09-12] MEDS: ASCORBIC ACID 500 MG TAB PO SCH (10:31)
[2021-09-12] MEDS: ZINC SULFATE 220 MG CAP PO SCH (10:31)
[2021-09-12] MEDS: ASPIRIN 81 MG TAB CHEW PO SCH (10:31)
--- NOTE | 2021-09-12 12:16 | Discharge Summary ---
Providers - Providers Date of Admission: 09/05/21 19:47 Date of discharge: 09/12/21 Attending physician: ZITA PITTS MD 09/07/21 07:43 Consult to Physician [CONS] Routine Comment: Consulting Provider: KEN BORGES Physician Instructions: Reason For Exam: covid 19 Primary care physician: DIRECT CARE STAFFER Hospitalization Reason for admission: Acute hypoxic respiratory failure Condition: Fair Pertinent studies: Reviewed. Procedures: None. Hospital course: Patient is a 61-year-old male with past medical history of hypertension, asthma, nicotine dependence, and homelessness who presented with increased shortness of breath, fever, chills, myalgias, diminished sense of smell and taste, and overall malaise for approximately 1 week. The patient was found to be positive for COVID-19 pneumonia complicated by acute hypoxic respiratory failure the patient was treated with remdesivir and steroids per COVID-19 pneumonia protocol. Infectious disease was consulted for further management. The patient was eventually weaned to room air. The patient was counseled about the importance of smoking cessation especially in the setting of active COVID-19 infection. The patient expresses understanding. The patient will require continued quarantine until 09/15/2021. Patient expresses understanding. Patient is medically clear for discharge. Disposition: HOME / SELF CARE / HOMELESS Final Discharge Diagnosis (Prints w/discharge instructions): Acute hypoxic respiratory failure, COVID-19 pneumonia, hypertension, hypokalemia, tobacco dependence, homelessness Time spent for discharge: 45 min Core Measure Documentation - Palliative Care Palliative Care/ Comfort Measures: Not Applicable - Core Measures Any of the following diagnoses?: none Exam - Constitutional Vitals: Temp Pulse Resp BP Pulse Ox 98.1 F 51 L 18 138/78 98 09/12/21 05:16 09/12/21 05:16 09/12/21 05:16 09/12/21 05:16 09/12/21 10:00 General appearance: Present: no acute distress, cachectic - EENT Eyes: Present: PERRL, EOM intact ENT: hearing intact, clear oral mucosa, edentulous - Neck Neck: Present: supple, normal ROM - Respiratory Respiratory effort: normal Respiratory: bilateral: diminished - Cardiovascular Rhythm: regular Heart Sounds: Present: S1 & S2 - Extremities Extremities: no ischemia, pulses intact, pulses symmetrical, No edema, normal temperature, normal color Peripheral Pulses: within normal limits - Abdominal General gastrointestinal: Present: soft, non-tender, non-distended, normal bowel sounds Male genitourinary: Present: deferred - Rectal Rectal Exam: deferred - Integumentary Integumentary: Present: clear, warm, dry - Musculoskeletal Musculoskeletal: strength equal bilaterally - Psychiatric Psychiatric: appropriate mood/affect, cooperative - Neurologic Neurologic: CNII-XII intact, moves all extremities - Allied Health Allied health notes reviewed: nursing Plan Activity: no restrictions Diet: low salt Care Plan Goals: Patient is medically clear for discharge. Assessment: Patient is a 61-year-old male with past medical history of hypertension, asthma, nicotine dependence, and homelessness who presented with increased shortness of breath, fever, chills, myalgias, diminished sense of smell and taste, and overall malaise for approximately 1 week. The patient was found to be positive for COVID-19 pneumonia complicated by acute hypoxic respiratory failure the patient was treated with remdesivir and steroids per COVID-19 pneumonia protocol. Infectious disease was consulted for further management. The patient was eventually weaned to room air. The patient was counseled about the importance of smoking cessation especially in the setting of active COVID-19 infection. The patient expresses understanding. The patient will require continued quarantine until 09/15/2021. Patient expresses understanding. Patient is medically clear for discharge. Follow up with: PRIMARY CARE, [Primary Care Provider] - 7 Days Prescriptions: Aspirin [Aspirin BABY CHEW TAB] 81 mg PO QDAY #30 tab.chew dexAMETHasone [Decadron] 8 mg PO DAILY #7 tablet Calcium Carbonate [[place] 1250MG TAB] 1,250 mg PO BID #60 tablet Zinc Sulfate 220 mg PO BID #14 capsule
[2021-09-12 18:15] VITALS: BP 128/73
== END 2021-09-12 21:30 | disposition home or self-care (01) | DRG 177 ==
LOC: ED 18:11 → 3A 19:47
PROVIDERS: ADMIT Internal Medicine; ATTEND Student in an Organized Health Care Education/Training Program
PROC: XW033E5 Introduction of Remdesivir Anti-infective into Peripheral Vein, Percutaneous Approach, New Technology Group 5 (ICD-10-PCS; principal; 2021-09-07)
DX: U07.1 COVID-19 (principal); J96.01 Acute respiratory failure with hypoxia; J12.82 Pneumonia due to coronavirus disease 2019; J45.901 Unspecified asthma with (acute) exacerbation; F17.200 Nicotine dependence, unspecified, uncomplicated; I10 Essential (primary) hypertension; E87.6 Hypokalemia; Z59.00 Homelessness unspecified; Z82.49 Family history of ischemic heart disease and other diseases of the circulatory system
CPT/HCPCS: 36415; 71046; 71275; 80048; 80053; 82728; 83615; 84145; 85007; 85025; 85379; 86140; 87040; 94640; 94644; 94760; G0378; Q0162; J0456; J0696; J1100; J1644; J1956; J2920; J3480; J7030; J7050; J8540; Q9967; U0003

== ENCOUNTER → 2022-03-09 | Emergency (ER) | payer SELFPAY ==
[2022-03-09 10:51] LABS: Eosinophils # (Auto) 0.1 K/mm3 (0.0-0.4); Eosinophils % (Auto) 1.2 % (0.0-4.3); Hematocrit 35.7 % (35.5-45.6); Hemoglobin 12.3 gm/dl (11.8-15.2); Lymphocytes # (Auto) 1.4 K/mm3 (1.2-5.4); Lymphocytes % (Auto) 33.8 % (13.4-35.0); Mean Corpuscular HGB Conc 35 % (32-34); Mean Corpuscular Volume 102 fl (84-94); Monocytes # (Auto) 0.5 K/mm3 (0.0-0.8); Monocytes % (Auto) 12.9 % (0.0-7.3); Platelet Count 155 K/mm3 (140-440); Red Blood Count 3.49 M/mm3 (3.65-5.03); Red Cell Distribution Width 15.5 % (13.2-15.2)
[2022-03-09 11:09] LABS: Alanine Aminotransferase 31 units/L (7-56); Albumin 3.6 g/dL (3.9-5); Blood Urea Nitrogen 8 mg/dL (9-20); Calcium 8.6 mg/dL (8.4-10.2); Hemolysis Index 15
[2022-03-09 11:11] LABS: BUN/Creatinine Ratio 13
[2022-03-09 12:54] VITALS: BP 144/93
== END ==
LOC: ED 10:07
DX: M79.604 Pain in right leg (principal); M79.605 Pain in left leg; Z53.21 Procedure and treatment not carried out due to patient leaving prior to being seen by health care provider
CPT/HCPCS: 36415; 80053; 84484; 85025

== ENCOUNTER 2022-03-11 04:14 | Emergency (ER) | payer SELFPAY ==
[2022-03-11 05:36] VITALS: BP 178/89
== END 2022-03-11 17:33 | disposition left against medical advice (07) ==
LOC: ED 04:14
DX: M79.606 Pain in leg, unspecified (principal); Z53.21 Procedure and treatment not carried out due to patient leaving prior to being seen by health care provider